=== PATIENT | male | born 2000 | race Caucasian/White ===

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

== ENCOUNTER 2022-02-02 08:01 | Emergency (ER) | payer OTHER, SELFPAY ==
--- NOTE | ~2022-02-02 | CT_ITS ---
EXAMINATION: CT ABDOMEN AND PELVIS WITH CONTRAST CLINICAL INFORMATION: Right lower quadrant pain COMPARISON: None TECHNIQUE: Multidetector volumetric images were obtained from the superior aspect of the liver through the pubic symphysis following administration 85 mL of Omnipaque 350 intravenous contrast. Sagittal and coronal reformatted images were obtained on the technologist's workstation. Oral contrast: Yes This CT examination was performed using dose optimization techniques as appropriate, variously including the following: *Automated exposure control *Adjustment of mA and/or kV according to patient size (this includes techniques or standardized protocols for targeted exams where dose is matched to indication/reason for exam; i.e. extremities or head) *Use of iterative reconstruction technique DLP: 470 mGy-cm FINDINGS: LUNG BASES: The visualized lung bases are unremarkable. LIVER, GALLBLADDER, AND BILIARY TREE: The liver is normal in size, shape, and attenuation. No focal hepatic lesion or biliary ductal dilatation is present. The gallbladder is unremarkable with no evidence of radiopaque gallstones, gallbladder wall thickening, or obvious pericholecystic inflammatory changes. PANCREAS: Unremarkable. SPLEEN: Unremarkable. ADRENAL GLANDS: Unremarkable. KIDNEYS AND URETERS: The kidneys are normal in size, shape, and attenuation. No hydronephrosis, hydroureter, or calculi seen. No perinephric stranding. BLADDER: Unremarkable. GASTROINTESTINAL TRACT: The small and large bowel are unremarkable. The appendix is unremarkable. ABDOMINAL WALL: No significant hernia is appreciated. LYMPH NODES: There is shotty small bowel mesentery lymphadenopathy. Larger lymph nodes are upper normal in size. No ascites. VASCULAR: Unremarkable. PELVIC VISCERA: Unremarkable. OSSEOUS STRUCTURES: Unremarkable. CT/CT abdomen pelvis w con IMPRESSION: Normal appendix. Shotty small bowel mesentery lymphadenopathy. Larger lymph nodes are upper normal in size. Fleischner guidelines were followed.
[2022-02-02 08:14] VITALS: BP 149/76; PULSE 79; RESP 18; TEMP 37.7; O2SAT 100; BMI 21.5
--- NOTE | 2022-02-02 08:41 | ED.GENADULT ---
HPI - General Adult General Chief complaint: Nausea/Vomiting/Diarrhea Stated complaint: abd pain vomiting Time Seen by Provider: 02/02/22 08:25 Source: patient Limitations: no limitations History of Present Illness HPI narrative: This is a 21-year-old male who 3 days ago had developed vomiting, which she had for 24 hours. The patient had eaten [employer] the night before the vomiting began. He denies any diarrhea. He did have dry heaves yesterday morning but felt somewhat better yesterday. This morning he noted pain in his right lower abdomen which is fairly intense, worse with walking or movement. Denies any fever. He denies any constipation. Denies any urinary symptoms. Related Data Home Medications Medication Instructions Recorded Confirmed No Known Home Meds 09/08/21 09/08/21 Allergies Allergy/AdvReac Type Severity Reaction Status Date / Time No Known Allergies Allergy Verified 02/02/22 08:21 [No Known Allergies*] Review of Systems Review of Systems: Yes all other systems are reviewed and are negative Constitutional: Constitutional: Reports as per HPI and Denies fever(s) Eyes: Eyes: Reports as per HPI and Reports no additional eye complaints ENT: Reports system reviewed and no additional complaints, except as documented, Reports as per HPI, Denies nasal congestion, Denies nasal discharge and Denies sore throat Cardiovascular: Cardiovascular: Reports as per HPI, Denies chest pain and Denies dyspnea Respiratory: Respiratory: Reports as per HPI, Denies cough and Denies dyspnea Gastrointestinal: Gastrointestinal: Reports as per HPI, Reports abdominal pain, Denies diarrhea, Reports nausea and Reports vomiting Genitourinary: Genitourinary: Reports as per HPI, Denies hematuria, Denies dysuria and Denies urinary frequency Musculoskeletal: Musculoskeletal: Reports no additional musculoskeletal complaints and Denies numbness Integumentary/Breasts: Skin/Breast: Reports as per HPI and Denies rash Neurologic: Reports as per HPI, Denies focal weakness and Denies numbness Psychiatric: Psychiatric: Reports no additional psychiatric complaints and Reports as per HPI Endocrine: Endocrine: Reports no additional endocrine complaints and Reports as per HPI Hematologic/Lymphatic: Hematologic/Lymphatic: Reports no additional hematologic/lymphatic complaints, Reports as per HPI and Reports other (No peripheral edema) [facility] Past Medical History Medical History (Updated 02/02/22 @ 10:40 by Wilfred Celaya MD) Anxiety Social History Social History Smoked in Last 30 Days: No Use of substances other than those prescribed or required for medical reasons: Yes Substance Use Type: Marijuana Advance Directives: No Advance Directives Information Provided: No Physical Exam ED Vital Signs: Vital Signs - 24 hr 02/02/22 08:14 02/02/22 09:28 Temperature 99.8 F 97.9 F Pulse Rate 79 68 Respiratory Rate 18 16 Blood Pressure 149/76 H 126/70 Pulse Oximetry 100 100 BMI result Body Mass Index 21.5 Const General: no acute distress Orientation/consciousness: patient oriented x3 HENMT Head: Yes normal to inspection General nose exam: Normal external nose present Mouth: moist mucous membranes Throat: Yes posterior oropharynx normal, Yes tonsils normal and Yes uvula midline Eyes Eyelids: Yes eyelids normal Conjunctivae: conjunctivae normal Pupils: Equal, round and reactive pupils present Neck Neck: Yes supple Resp Effort & Inspection: normal respiratory effort Auscultation: clear to auscultation bilaterally Cardio Rate: regular rate Rhythm: regular rhythm Heart sounds: S1 normal heart sound present, S2 normal heart sound present, no gallops, no murmurs and no rubs GI Inspection: Yes normal to inspection and No distended Palpation (GI): Soft to palpation, Tenderness to palpation present (GI) in the RLQ and at McBurney's point; Negative for obturator sign negative and Other GI palpation findings present (Tender to percussion at McBurney's point) Auscultation: normal bowel sounds Skin General skin exam: other (Warm and dry) Neuro General: patient oriented x3 and CN's II-XI intact bilaterally Cranial nerves: Yes Equal, round and reactive pupils present Extrem General: Yes no pedal edema Psych Affect: normal affect Attitude: cooperative Course Course Course Narrative: Patient with right lower quadrant pain, having had vomiting few days ago for 24 hours. Patient was tender around McBurney's point. White blood cell count normal. Afebrile. CT shows normal appendix, some evidence of increased adenopathy in the abdomen, patient may have mesenteric adenitis. Urinalysis negative. Patient was treated with normal saline 1 L IV, Zofran 4 mg IV, Toradol 15 mg IV Medical Decision Making Lab Data Lab results reviewed: Yes I reviewed the patient's lab results. Result diagrams: 02/02/22 08:39 02/02/22 08:39 Labs: Lab Results 02/02/22 02/02/22 02/02/22 Range/Units 08:39 08:39 09:30 WBC 6.1 (4.8-10.8) X10*3/uL RBC 5.04 (4.60-5.80) X10*6/uL Hgb 15.3 (14.0-18.0) g/dl Hct 44.2 (42.0-52.0) % MCV 87.7 (80.0-98.0) fL MCH 30.4 (27.0-33.0) pg MCHC 34.6 (31.0-36.0) g/dl RDW 12.6 (11.0-16.0) % Plt Count 182 (160-400) X10*3/uL MPV 10.1 (9.4-12.4) fL Immature Gran % (Auto) 0.2 (0.0-0.4) % Neut % (Auto) 67.3 (45-73) % Lymph % (Auto) 19.4 L (20-40) % [place] % (Auto) 11.5 H (2-11) % Eos % (Auto) 1.3 (0-4) % Baso % (Auto) 0.3 (0-2) % Lymph # (Auto) 1.2 (1.2-4.9) X10*3/uL [place] # (Auto) 0.7 (0.1-1.2) X10*3/uL Eos # (Auto) 0.1 (0.0-0.4) X10*3/uL Baso # (Auto) 0.0 (0.0-0.2) X10*3/uL Abs Immat Gran (auto) 0.01 (0.00-0.03) X10*3/uL Absolute Neuts (auto) 4.1 (2.0-8.3) x10*3/uL Absolute Nucleated RBC 0.000 (0.0-0.012) X10*3/uL Nucleated RBC % (auto) 0.0 (0.0-0.2) /100WBC Sodium 140 (135-145) mmol/L Potassium 4.1 (3.3-5.1) mmol/L Chloride 106 (96-108) mmol/L Carbon Dioxide 27 (22-29) mmol/L Anion Gap 11 L (12-20) BUN 13 (9-16) mg/dL Creatinine 0.89 (0.5-1.4) mg/dL Estim Creat Clear Calc 128.4 Estimated GFR > 60 Random Glucose 81 (60-115) mg/dL Calcium 9.6 (8.4-10.2) mg/dL Total Bilirubin 1.1 H (0.0-1.0) mg/dL AST 17 (5-37) U/L ALT 13 (0-40) U/L Alkaline Phosphatase 48 (39-117) U/L Total Protein 7.1 (6.5-8.0) g/dL Albumin 4.4 (3.5-5.0) g/dL Urine Color STRAW Urine Appearance CLEAR Urine pH 7.5 (5.0-8.0) Ur Specific [place] 1.010 (1.005-1.025) Urine Protein NEG (NEG-TRACE) MG/DL Urine Glucose (UA) NEG (NEG) MG/DL Urine Ketones NEG (NEG) MG/DL Urine Blood NEG (NEG) Urine Nitrite NEG (NEG) Ur Leukocyte Esterase NEG (NEG) Imaging Data CT scan - abdomen: Radiologist's impression: IMPRESSION: Normal appendix. Shotty small bowel mesentery lymphadenopathy. Larger lymph nodes are upper normal in size. Discharge Plan Discharge Clinical Impression: Acute mesenteric adenitis Patient Disposition: Home, Self-Care Instructions: Mesenteric Adenitis (ED) Additional Instructions: Drink plenty of fluids. Return for new or worsened symptoms such as progressive abdominal pain, fever. Use acetaminophen or ibuprofen for pain as needed. You likely had a viral syndrome causing the vomiting, and have enlarged lymph nodes related to this, that are causing pain Prescriptions: No Action No Known Home Meds 0RF Interventions: ED Discharge Assessment Last Done: 02/02/22 10:57 Discharge Date/Time: 02/02/22 10:58
[2022-02-02 08:44] LABS: MANUAL DIFF FLAG NO
[2022-02-02 08:47] LABS: Basophils Percent Auto 0.3 % (0-2); Eosinophils Absolute Auto 0.1 X10*3/uL (0.0-0.4); Eosinophils Percent Auto 1.3 % (0-4); Hematocrit 44.2 % (42.0-52.0); Hemoglobin 15.3 g/dl (14.0-18.0); Imm Gran Abs Auto 0.01 X10*3/uL (0.00-0.03); Imm Gran Pct Auto 0.2 % (0.0-0.4); Lymphocytes Absolute Auto 1.2 X10*3/uL (1.2-4.9); Lymphocytes Percent Auto 19.4 % (20-40); Mean Corpuscular HGB Conc 34.6 g/dl (31.0-36.0); Mean Corpuscular Hemoglobin 30.4 pg (27.0-33.0); Mean Corpuscular Volume 87.7 fL (80.0-98.0); Mean Platelet Volume 10.1 fL (9.4-12.4); Monocytes Absolute Auto 0.7 X10*3/uL (0.1-1.2); Monocytes Percent Auto 11.5 % (2-11); Neutrophils Absolute Auto 4.1 x10*3/uL (2.0-8.3); Neutrophils Percent Auto 67.3 % (45-73); Platelet Count 182 X10*3/uL (160-400); Red Blood Count 5.04 X10*6/uL (4.60-5.80); Red Cell Distribution Width 12.6 % (11.0-16.0); White Blood Count 6.1 X10*3/uL (4.8-10.8)
[2022-02-02] MEDS: 0.9 % Sodium Chloride 1,000 ML 999 ML IV (09:00)
[2022-02-02 09:09] LABS: Alanine Aminotransferase 13 U/L (0-40); Albumin Level 4.4 g/dL (3.5-5.0); Alkaline Phosphatase 48 U/L (39-117); Anion Gap 11 (12-20); Aspartate Amino Transferase 17 U/L (5-37); Bilirubin Total 1.1 mg/dL (0.0-1.0); Blood Urea Nitrogen 13 mg/dL (9-16); Calcium 9.6 mg/dL (8.4-10.2); Carbon Dioxide 27 mmol/L (22-29); Chloride 106 mmol/L (96-108); Creatinine Clr Calc Pharmacy 128.4; Estimated Glomerular Filt Rate > 60; Glucose Random 81 mg/dL (60-115); Potassium 4.1 mmol/L (3.3-5.1); Sodium 140 mmol/L (135-145); Total Protein 7.1 g/dL (6.5-8.0)
[2022-02-02] MEDS: ondansetron HCL 4 MG/2 ML VIAL IVPUSH (09:15)
[2022-02-02 09:28] VITALS: BP 126/70; PULSE 68; RESP 16; TEMP 36.6; O2SAT 100
[2022-02-02 09:41] LABS: Appearance Urine CLEAR; Color Urine STRAW; Glucose Urine UA NEG (NEG); Leukocyte Esterase Urine NEG (NEG); Nitrite Urine NEG (NEG); PH 7.5 (5.0-8.0); Urine Blood NEG (NEG); Urine Ketones NEG (NEG); Urine Protein NEG (NEG-TRACE)
[2022-02-02] MEDS: iohexoL 350 MG/ML 100 ML INFUS..BTL IV (09:44)
[2022-02-02] MEDS: Ketorolac Tromethamine 15 MG/ML VIAL IVPUSH (10:54)
== END 2022-02-02 10:58 | disposition home or self-care (01) ==
PROVIDERS: Emergency Provider Emergency Medicine; PCP Specialist
DX: I88.0 Nonspecific mesenteric lymphadenitis (principal); R10.31 Right lower quadrant pain; Z79.899 Other long term (current) drug therapy
CPT/HCPCS: 36415; 74177; 80053; 81003; 85025; 96361; 96374; 96375; 99284; 99285; J1885; J2405; Q9967

== ENCOUNTER 2022-05-10 08:43 | Emergency (ER) | payer OTHER, SELFPAY ==
--- NOTE | ~2022-05-10 | US_ITS ---
EXAMINATION: US SCROTUM US SCROTUM DOPPLER CLINICAL INFORMATION: Right-sided pain. Evaluate for testicular torsion.. COMPARISON: CT abdomen and pelvis from 02/02/2022. TECHNIQUE: A sonogram of the scrotum was performed assessing sroto-scale appearance and color Doppler flow. Spectral Doppler analysis of the arterial and venous flow were performed in the testes bilaterally. FINDINGS: Scrotal ultrasound The right and left testicle and each epididymis have symmetric, normal echotexture. No evidence of testicular microlithiasis or mass. The right testicle is 4.3 x 1.6 x 2.5 cm and left testicle 3.8 x 1.6 x 2.6 cm. On color Doppler imaging, there is no evidence of hyperemia of either epididymis. No hydrocele or varicocele. No extratesticular masses. Scrotal Doppler The pulsed color Doppler images with spectral waveforms show presence of normal symmetric arterial and venous flow within each testicle. US/US scrotum doppler IMPRESSION: Normal ultrasound examination of the scrotum. No evidence of testicular mass or torsion.
--- NOTE | ~2022-05-10 | US_ITS ---
EXAMINATION: US SCROTUM US SCROTUM DOPPLER CLINICAL INFORMATION: Right-sided pain. Evaluate for testicular torsion.. COMPARISON: CT abdomen and pelvis from 02/02/2022. TECHNIQUE: A sonogram of the scrotum was performed assessing sorto-scale appearance and color Doppler flow. Spectral Doppler analysis of the arterial and venous flow were performed in the testes bilaterally. FINDINGS: Scrotal ultrasound The right and left testicle and each epididymis have symmetric, normal echotexture. No evidence of testicular microlithiasis or mass. The right testicle is 4.3 x 1.6 x 2.5 cm and left testicle 3.8 x 1.6 x 2.6 cm. On color Doppler imaging, there is no evidence of hyperemia of either epididymis. No hydrocele or varicocele. No extratesticular masses. Scrotal Doppler The pulsed color Doppler images with spectral waveforms show presence of normal symmetric arterial and venous flow within each testicle. US/US scrotum IMPRESSION: Normal ultrasound examination of the scrotum. No evidence of testicular mass or torsion.
[2022-05-10 08:45] VITALS: BP 130/72; PULSE 75; RESP 18; TEMP 36.9; O2SAT 99; BMI 24.3
--- NOTE | 2022-05-10 08:55 | ED.MALEGU ---
HPI - Male Genitourinary General Chief complaint: Urogenital-Male Stated complaint: R testical pain Time Seen by Provider: 05/10/22 08:49 Source: patient Mode of arrival: ambulatory Limitations: no limitations History of Present Illness Complaint: testicle pain and testicle swelling Onset (ago): hour(s) (8am today - did hurt a little yesterday but went away) Duration: progressively worsening Location: right testicle Severity: severe Quality: stabbing Relieving factors: none Exacerbating factors: palpation and movement Context: other (denies any recent intercourse/trauma/last intercourse over 1+ month ago and used a condom) Associated symptoms: Reports denies other symptoms Related Data Previous Rx's Medication Instructions Recorded doxycycline hyclate 100 mg capsule 100 mg PO BID 7 days #14 caps 05/10/22 Allergies Allergy/AdvReac Type Severity Reaction Status Date / Time No Known Allergies Allergy Verified 02/02/22 08:21 [No Known Allergies*] Review of Systems Review of Systems: Constitutional : No Fever, No Chills, No Fatigue, No Malaise ENT/Mouth : No sore throat, No Rhinorrhea Eyes: No Eye Pain, No Swelling, No Redness Cardiovascular : No Chest Pain, No SOB Respiratory : No Cough, No Sputum, No Wheezing Gastrointestinal : pos Nausea, No Vomiting, No Diarrhea, No abdominal Pain Genitourinary : No Dysuria, No Urinary Frequency, No Hematuria, pos testicular pain Musculoskeletal : No joint pain, No Myalgias, No Joint Swelling Skin : No Skin Lesions, No rash Neuro : No Weakness, No Numbness, No Dizziness, No Headache Psych : No Anxiety/Panic, No Depression Heme/Lymph: No Bruising, No Bleeding,No Lymphadenopathy Endocrine : No Polyuria, No Polydipsia All other systems reviewed and are negative [facility] Past Medical History Attestation statement: The following information was validated with the patient. Medical History Anxiety Social History Social History (Updated 05/10/22 @ 08:57 by Edith Swann DO) Patient Tobacco Use Status: Never used Tobacco Use of substances other than those prescribed or required for medical reasons: Yes Substance Use Type: Marijuana Advance Directives: No Advance Directives Information Provided: No Physical Exam Vital Signs: Vital Signs: Last Vital Signs Temp 98.4 F 05/10/22 08:45 Pulse 76 05/10/22 09:04 Resp 20 05/10/22 09:04 BP 144/83 H 05/10/22 09:04 Pulse Ox 100 05/10/22 09:04 O2 Del Method 05/10/22 09:04 BMI result Body Mass Index 24.3 Appearance: Alert. Oriented X3. in pain mild acute distress. Eyes: Pupils equal, round and reactive to light. ENT: Pharynx normal. Neck: Normal inspection. Neck supple. CVS: Normal heart rate and rhythm. Pulses normal. Respiratory: No respiratory distress. Breath sounds normal. Abdomen: Soft and nontender. : R testicle high riding, decreased cremasteric reflex, scrotum no erythema/rash/swelling, cord is not tender to palpation, marked ttp along testicle itself Skin: Skin warm and dry. Normal skin color. Normal skin turgor. Extremities: No lower extremity edema. Neuro: Oriented X 3. No motor deficit. No sensory deficit. Course Course Course Narrative: message sent to Urology 0855 US normal, no hernia felt, pain improved just mild ttp along base of testicle no sign of torsion MDM - Male Genitourinary MDM Narrative Medical decision making narrative: 22 yo male abrupt onset atraumatic R testicular pain - at this time STAT US for torsion ordered, IVF, IV Morphine/toradol for pain, Urology notified on arrival of suspicion. Dispo per US results. Lab Data Result diagrams: 05/10/22 08:57 05/10/22 08:57 Labs: Lab Results 05/10/22 05/10/22 05/10/22 Range/Units 08:57 08:57 08:57 WBC 8.6 (4.8-10.8) X10*3/uL RBC 5.40 (4.60-5.80) X10*6/uL Hgb 16.2 (14.0-18.0) g/dl Hct 47.8 (42.0-52.0) % MCV 88.5 (80.0-98.0) fL MCH 30.0 (27.0-33.0) pg MCHC 33.9 (31.0-36.0) g/dl RDW 12.6 (11.0-16.0) % Plt Count 205 (160-400) X10*3/uL MPV 10.3 (9.4-12.4) fL Immature Gran % (Auto) 0.2 (0.0-0.4) % Neut % (Auto) 63.0 (45-73) % Lymph % (Auto) 27.9 (20-40) % [place] % (Auto) 6.9 (2-11) % Eos % (Auto) 1.5 (0-4) % Baso % (Auto) 0.5 (0-2) % Lymph # (Auto) 2.4 (1.2-4.9) X10*3/uL [place] # (Auto) 0.6 (0.1-1.2) X10*3/uL Eos # (Auto) 0.1 (0.0-0.4) X10*3/uL Baso # (Auto) 0.0 (0.0-0.2) X10*3/uL Abs Immat Gran (auto) 0.02 (0.00-0.03) X10*3/uL Absolute Neuts (auto) 5.4 (2.0-8.3) x10*3/uL Absolute Nucleated RBC 0.000 (0.0-0.012) X10*3/uL Nucleated RBC % (auto) 0.0 (0.0-0.2) /100WBC PT 11.9 (10.0-13.1) SEC INR 1.0 (0.9-1.1) Sodium 142 (135-145) mmol/L Potassium 4.3 (3.3-5.1) mmol/L Chloride 103 (96-108) mmol/L Carbon Dioxide 30 H (22-29) mmol/L Anion Gap 13 (12-20) BUN 13 (9-16) mg/dL Creatinine 1.00 (0.5-1.4) mg/dL Estim Creat Clear Calc 121.6 Estimated GFR > 60 Random Glucose 98 (60-115) mg/dL Calcium 9.7 (8.4-10.2) mg/dL Total Bilirubin 1.0 (0.0-1.0) mg/dL Direct Bilirubin 0.4 (0.0-0.5) mg/dL AST 13 (5-37) U/L ALT 9 (0-40) U/L Alkaline Phosphatase 46 (39-117) U/L Total Protein 7.4 (6.5-8.0) g/dL Albumin 4.7 (3.5-5.0) g/dL Urine Color Urine Appearance Urine pH (5.0-8.0) Ur Specific [place] (1.005-1.025) Urine Protein (NEG-TRACE) MG/DL Urine Glucose (UA) (NEG) MG/DL Urine Ketones (NEG) MG/DL Urine Blood (NEG) Urine Nitrite (NEG) Ur Leukocyte Esterase (NEG) Chlam trachomat DNA PCR (Not Detect.) COVID-19 (ANAI) (Negative) COVID-19 Clin Com N.gonorrhoeae DNA (PCR) (Not Detect.) 05/10/22 05/10/22 05/10/22 Range/Units 08:57 10:01 10:01 WBC (4.8-10.8) X10*3/uL RBC (4.60-5.80) X10*6/uL Hgb (14.0-18.0) g/dl Hct (42.0-52.0) % MCV (80.0-98.0) fL MCH (27.0-33.0) pg MCHC (31.0-36.0) g/dl RDW (11.0-16.0) % Plt Count (160-400) X10*3/uL MPV (9.4-12.4) fL Immature Gran % (Auto) (0.0-0.4) % Neut % (Auto) (45-73) % Lymph % (Auto) (20-40) % [place] % (Auto) (2-11) % Eos % (Auto) (0-4) % Baso % (Auto) (0-2) % Lymph # (Auto) (1.2-4.9) X10*3/uL [place] # (Auto) (0.1-1.2) X10*3/uL Eos # (Auto) (0.0-0.4) X10*3/uL Baso # (Auto) (0.0-0.2) X10*3/uL Abs Immat Gran (auto) (0.00-0.03) X10*3/uL Absolute Neuts (auto) (2.0-8.3) x10*3/uL Absolute Nucleated RBC (0.0-0.012) X10*3/uL Nucleated RBC % (auto) (0.0-0.2) /100WBC PT (10.0-13.1) SEC INR (0.9-1.1) Sodium (135-145) mmol/L Potassium (3.3-5.1) mmol/L Chloride (96-108) mmol/L Carbon Dioxide (22-29) mmol/L Anion Gap (12-20) BUN (9-16) mg/dL Creatinine (0.5-1.4) mg/dL Estim Creat Clear Calc Estimated GFR Random Glucose (60-115) mg/dL Calcium (8.4-10.2) mg/dL Total Bilirubin (0.0-1.0) mg/dL Direct Bilirubin (0.0-0.5) mg/dL AST (5-37) U/L ALT (0-40) U/L Alkaline Phosphatase (39-117) U/L Total Protein (6.5-8.0) g/dL Albumin (3.5-5.0) g/dL Urine Color STRAW Urine Appearance HAZY Urine pH 8.5 H (5.0-8.0) Ur Specific [place] 1.010 (1.005-1.025) Urine Protein NEG (NEG-TRACE) MG/DL Urine Glucose (UA) NEG (NEG) MG/DL Urine Ketones NEG (NEG) MG/DL Urine Blood NEG (NEG) Urine Nitrite NEG (NEG) Ur Leukocyte Esterase NEG (NEG) Chlam trachomat DNA PCR NOT DETECTED (Not Detect.) COVID-19 (ANAI) Negative (Negative) COVID-19 Clin Com See Note N.gonorrhoeae DNA (PCR) NOT DETECTED (Not Detect.) Discharge Plan Discharge Clinical Impression: Pain in right testicle Patient Disposition: Home, Self-Care Instructions: Scrotal Pain (ED) Additional Instructions: return to ED for any worsening symptoms or concerns if the pain returns to this severity please come back to the Emergency department, no intercourse for 1 week complete all antibiotics wear supportive tight fitting underwear Prescriptions: New doxycycline hyclate 100 mg capsule 100 mg PO BID 7 Days Qty: 14 0RF Stand Alone Forms: Work/School Release Interventions: ED Discharge Assessment Last Done: 05/10/22 11:51 Discharge Date/Time: 05/10/22 11:52
[2022-05-10] MEDS: Morphine Sulfate 4 MG/ML CARTRIDGE IVPUSH (08:58)
[2022-05-10] MEDS: ondansetron HCL 4 MG/2 ML VIAL IVPUSH (08:58)
[2022-05-10] MEDS: Ketorolac Tromethamine 15 MG/ML VIAL IVPUSH (08:59)
[2022-05-10] MEDS: Lactated Ringers 1,000 ML 999 ML IV (09:00)
[2022-05-10 09:04] VITALS: BP 144/83; PULSE 76; RESP 20; O2SAT 100
[2022-05-10 09:06] LABS: MANUAL DIFF FLAG NO
[2022-05-10 09:09] LABS: Basophils Percent Auto 0.5 % (0-2); Eosinophils Absolute Auto 0.1 X10*3/uL (0.0-0.4); Eosinophils Percent Auto 1.5 % (0-4); Hematocrit 47.8 % (42.0-52.0); Hemoglobin 16.2 g/dl (14.0-18.0); Imm Gran Abs Auto 0.02 X10*3/uL (0.00-0.03); Imm Gran Pct Auto 0.2 % (0.0-0.4); Lymphocytes Absolute Auto 2.4 X10*3/uL (1.2-4.9); Lymphocytes Percent Auto 27.9 % (20-40); Mean Corpuscular HGB Conc 33.9 g/dl (31.0-36.0); Mean Corpuscular Volume 88.5 fL (80.0-98.0); Mean Platelet Volume 10.3 fL (9.4-12.4); Monocytes Absolute Auto 0.6 X10*3/uL (0.1-1.2); Monocytes Percent Auto 6.9 % (2-11); Neutrophils Absolute Auto 5.4 x10*3/uL (2.0-8.3); Platelet Count 205 X10*3/uL (160-400); Red Cell Distribution Width 12.6 % (11.0-16.0); White Blood Count 8.6 X10*3/uL (4.8-10.8)
[2022-05-10 09:20] LABS: COVID-19 Test Negative (Negative)
[2022-05-10 09:29] LABS: Alanine Aminotransferase 9 U/L (0-40); Albumin Level 4.7 g/dL (3.5-5.0); Alkaline Phosphatase 46 U/L (39-117); Anion Gap 13 (12-20); Aspartate Amino Transferase 13 U/L (5-37); Bilirubin Direct 0.4 mg/dL (0.0-0.5); Blood Urea Nitrogen 13 mg/dL (9-16); Calcium 9.7 mg/dL (8.4-10.2); Carbon Dioxide 30 mmol/L (22-29); Chloride 103 mmol/L (96-108); Creatinine Clr Calc Pharmacy 121.6; Estimated Glomerular Filt Rate > 60; Glucose Random 98 mg/dL (60-115); Potassium 4.3 mmol/L (3.3-5.1); Sodium 142 mmol/L (135-145); Total Protein 7.4 g/dL (6.5-8.0)
[2022-05-10 09:31] LABS: Prothrombin Time 11.9 SEC (10.0-13.1)
[2022-05-10 10:15] LABS: Appearance Urine HAZY; Color Urine STRAW; Glucose Urine UA NEG (NEG); Leukocyte Esterase Urine NEG (NEG); Nitrite Urine NEG (NEG); PH 8.5 (5.0-8.0); Urine Blood NEG (NEG); Urine Ketones NEG (NEG); Urine Protein NEG (NEG-TRACE)
[2022-05-10] MEDS: cefTRIAXone sodium 1 GM in 0.9 % Sodium Chloride 50 ML IV (11:14)
[2022-05-10 12:40] LABS: CT PCR NOT DETECTED (Not Detect.); NG PCR NOT DETECTED (Not Detect.)
== END 2022-05-10 11:52 | disposition home or self-care (01) ==
PROVIDERS: Emergency Provider Emergency Medicine; PCP Specialist
DX: N50.811 Right testicular pain (principal); Z20.822 Contact with and (suspected) exposure to COVID-19
CPT/HCPCS: 76870; 80048; 80076; 81003; 85025; 85610; 87491; 87591; 87635; 93975; 96361; 96365; 96374; 96375; 99284; J0696; J1885; J2270; J2405

== ENCOUNTER 2022-07-20 18:44 | Emergency (ER) | payer OTHER, SELFPAY | END 2022-07-20 19:20 | disposition left against medical advice (07) | PROVIDERS: Emergency Provider Emergency Medicine; PCP Specialist | DX: N50.819 Testicular pain, unspecified (principal) ==

== ENCOUNTER 2024-02-05 14:05 | Outpatient (AMB) | payer OTHER, SELFPAY ==
--- NOTE | 2024-02-05 14:41 | MHC.PC.OV ---
Intake Visit Reasons: establish care Allergies No Known Allergies [No Known Allergies*] Allergy (Verified 02/02/22 08:21) Medication List - Last Reconciled 02/05/24 by Sara Dallas MD albuterol sulfate 90 mcg/actuation 2 puffs inhalation Q6H PRN Tobacco use date assessed: 02/05/24 Dental Screening Dental Screen Date: 02/05/24 HPI HPI Comments History of Present Illness Details 23 year old male with a past medical history of IBS presenting to [facility] and for ER follow up. He is transferring from pediatrics Presented to [facility] ER on January 14 with left sided abdominal pain and a reported episode of unresponsiveness. Hit his left flank on a doorknob ~5 pm causing significant pain. Between 5 and 10pm patient smoked some marijuana and ingested a few edibles which was not outside his norm. Between 945 and 10pm patient started to feel sick , nauseous. He elicited pain when pressing on the left flank He walked upstairs and says things became hazy. Sat down on a chair where he reports losing consciousness for ~10 seconds. Work up, stepmom and stepmoms friends were there and brought him to hospital. No prior similar episode. in ER EKG normal. No significant electrolyte abnormalities. . CT abd largely unremarkable Patient denies any interval episodes. Reports that he was talking with someone when he lost consciousness. They noticed nystagmus of the eyes. Deny witness of any muscle twitching, shaking, tongue biting, incontinence. Patient does endorse history of concussions none within last 6 months. Reports a few headaches a month for years. Reports decreasing visual acuity over years. Denies significant post ictal phase [facility] Medical History (Updated 02/05/24 @ 15:38 by Sara Dallas MD) Depression Eczema Imbalance Memory loss Seizures IBS (irritable bowel syndrome) Asthma Anxiety Family History (Updated 02/05/24 @ 14:36 by Laina Kim CMA) Mother Alcoholism Paternal Grandmother Cardiovascular disease Maternal Grandmother Alcoholism Other Substance use Social History (Updated 02/05/24 @ 14:34 by Laina Kim CMA) Housing: House Patient Tobacco Use Status: Former Tobacco user Cigarette Packs Per Day: 0.5 Years Smoked: 1 e-Cigarette/Vaping Use: Former Use Second Hand Smoke Exposure: Yes (past and present) Substance Use Type: Marijuana service: Yes Current occupational status: employed 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 1. Little interest or pleasure in doing things: not at all 2. Feeling down, depressed, or hopeless: not at all 3. Trouble falling or staying asleep, or sleeping too much: not at all 4. Feeling tired or having little energy: not at all 5. Poor appetite or overeating: not at all 6. Feeling bad about yourself - or that you are a failure or have let yourself or your family down: not at all 7. Trouble concentrating on things, such as reading the newspaper or watching television: not at all 8. Moving or speaking so slowly that other people could have noticed. Or the opposite - being so fidgety or restless that you have been moving around a lot more than usual: not at all 9. Thoughts that you would be better off or of hurting yourself in some way: not at all Total score: 0 Depression Screening Interpretation: Negative Depression Screening Done: Yes Source: Developed by Drs. Rigo Hernández, Anali Gibbs, Bryon Garcia and colleagues, with an educational queta from [employer]. Review of Systems Const Details: see HPI Physical exam (Primary Care) Tobacco/Smoking Status: Tobacco use Status Tobacco use date assessed 02/05/24 02/05/24 14:43 Patient Tobacco Use Status Former Tobacco user 02/05/24 14:43 e-Cigarette/Vaping Use Former Use 02/05/24 14:43 Depression Screening Interpretation: Negative Const Other: PHYSICAL EXAM: GENERAL: Alert and oriented x 3. NAD EYES: EOMI. Anicteric. HENT: Moist mucous membranes. No scleral icterus. No cervical lymphadenopathy. LUNGS: Clear to auscultation bilaterally. CARDIOVASCULAR: Regular rate and rhythm. ABDOMEN: Soft, non-tender +bs EXTREMITIES: No edema. Non-tender. SKIN: No rashes or lesions. Warm. NEUROLOGIC: No focal neurological deficits. CN II-XII grossly intact PSYCHIATRIC: Cooperative. Appropriate mood and affect Assessment and Plan Assessment & Plan (1) Loss of consciousness: Comment: Discussed possible drug induced LOC but with nystagmus and headaches would like to r/o seizures. Orders sent Code(s): R40.20 - Unspecified coma (2) Headache: Code(s): R51.9 - Headache, unspecified Qualifiers: Headache chronicity pattern: chronic headache Headache type: unspecified Intractability: intractable Qualified Code(s): R51.9 - Headache, unspecified; G89.29 - Other chronic pain (3) Nystagmus: Code(s): H55.00 - Unspecified nystagmus Orders: Orders MR brain wo/w con w neuroquant Today H55.00 - Unspecified nystagmus, R40.20 - Unspecified coma, R51.9 - Headache, unspecified EEG ambulatory Today H55.00 - Unspecified nystagmus, R40.20 - Unspecified coma, R51.9 - Headache, unspecified Referrals Dermatology Referral D18.01 - Hemangioma of skin and subcutaneous tissue Neurology Referral H55.00 - Unspecified nystagmus, R40.20 - Unspecified coma, R51.9 - Headache, unspecified Coding Level of Care Code New Pt Level 5 (26253) Complex EM visit Add On G2211 Diagnoses Loss of consciousness R40.20 Chronic intractable headache, unspecified headache type R51.9; G89.29 Headache chronicity pattern: chronic headache Headache type: unspecified Intractability: intractable Nystagmus H55.00 Time Spent (min) 62
== END 2024-02-05 15:17 | disposition home or self-care (01) ==
LOC: HO.HMGFM 14:05
PROVIDERS: PCP Internal Medicine; Visit Provider Internal Medicine
DX: R40.20 Unspecified coma (principal); R51.9 Headache, unspecified; G89.29 Other chronic pain; H55.00 Unspecified nystagmus
CPT/HCPCS: 99205; G2211

== ENCOUNTER 2024-03-05 10:29 | Outpatient (REF) | payer OTHER, SELFPAY ==
--- NOTE | ~2024-03-05 | MR_ITS ---
EXAMINATION: MR BRAIN WITHOUT AND WITH CONTRAST CLINICAL INFORMATION: Unspecified, and fold lesions; new seizure 1 month ago, speech difficulty, memory problems, headaches. History of several concussions October 2023. COMPARISON: None available. TECHNIQUE: Multiplanar, multisequence MRI of the brain was obtained before and after the intravenous administration of 7 mL Gadavist. Seizure protocol was utilized. FINDINGS: There is no diffusion restriction. There is no intracranial hemorrhage, acute infarction, mass effect, or edema. No evidence of cortical dysplasia or heterotopic sorto matter identified. Ventricles, sulci, and cisterns are normal in size and configuration for patient age. No shift of midline. No abnormal hemosiderin deposition is identified. No atrophy of the corpus callosum. The hippocampal formations are symmetric in volume and signal bilaterally without evidence of atrophic changes. There are no white matter abnormalities identified. After contrast, no abnormal intra or extra-axial contrast enhancement is noted. Midline structures appear normally formed. The pituitary gland appears normal. Cerebellar tonsils are appropriately located. Major flow voids are preserved within the skull base. The globes and orbital contents demonstrate no abnormalities. The paranasal sinuses are aerated normally. No significant nasal septal deviation. The mastoids and tympanic cavities are normally aerated. Extracranial soft tissues demonstrate mildly prominent adenoidal soft tissues in the posterior nasopharynx. No suspicious bone marrow changes are evident. Atlantoaxial joint is normal. MR/MR head/brain wo/w con IMPRESSION: 1. No evidence of intracranial hemorrhage, acute infarction, mass effect, edema, or abnormal contrast enhancement. 2. No seizure foci identified. No white matter signal abnormalities identified, the hippocampi appear normal, and no cortical dysplasia or evidence of heterotopic sorto matter. 3. No abnormal patterns of atrophy.
--- NOTE | ~2024-03-05 | XR_ITS ---
Examination: XR pre mri screening Indication: Reason for Exam PRE MRI ORBITS R/O FOREIGN BODY Comparison: No pertinent prior studies are currently available for comparison. Technique: 3 views of the orbits obtained. Findings: No radiopaque foreign bodies seen overlying the orbits. Visualized sinuses are well aerated and unremarkable. No abnormal bony abnormality. XR/XR pre mri screening Impression: No radiopaque foreign body seen overlying the orbits.
[2024-03-05] MEDS: gadobutroL 7.5 ML VIAL IVPUSH (12:32)
== END 2024-03-05 10:30 | disposition home or self-care (01) ==
LOC: HO.MRI 10:29
PROVIDERS: PCP Internal Medicine; Visit Provider Internal Medicine
DX: R56.9 Unspecified convulsions (principal); H55.00 Unspecified nystagmus; R51.9 Headache, unspecified; G89.29 Other chronic pain; R40.20 Unspecified coma
CPT/HCPCS: 70553; A9585

== ENCOUNTER → 2024-03-05 10:29 | Outpatient (BNV) | payer OTHER, SELFPAY | PROVIDERS: PCP Internal Medicine; Visit Provider Radiology Diagnostic Radiology | DX: G40.89 Other seizures (principal) | CPT/HCPCS: 70553 ==

== ENCOUNTER → 2024-04-17 15:06 | Outpatient (AMB) | payer OTHER, SELFPAY ==
[2024-04-17 15:23] VITALS: BP 116/58; PULSE 71; RESP 12; O2SAT 98; BMI 23.4
--- NOTE | 2024-04-17 15:23 | MHC.PC.OV ---
Vital Signs 04/17/24 15:23 Height 5 ft 10 in Weight 163 lb BMI 23.4 BP 116/58 L Blood Pressure Location Lt brachial Position Sitting Respiration 12 Pulse 71 Pulse Source Pulse Oximeter Pulse Oximetry (%) 98 Oxygen Delivery Method Room Air Intake Visit Reasons: est/ multiple issues Intake Note: Patient is here for concern of bleeding and irritation while wiping his bum. Patient states this has been ongoing for 1-2 months. Supervisor [employer] Required: No Accompanied by: Self / Same As Patient Allergies No Known Allergies [No Known Allergies*] Allergy (Verified 04/17/24 15:27) Tobacco use date assessed: 02/05/24 Dental Screening Dental Screen Date: 02/05/24 HPI HPI Comments History of Present Illness Details 23 year old male with a past medical history of IBS, presenting for rectal discomfort Patient reports ongoing issues with intermittent rectal discomfort, episodic bright red blood spotting on tissue paper. He has IBS is prone to frequent loose stools. Sometimes he feels swelling in the rectal area AMS:Patient denies Presented to [facility] ER on January 14 with left sided abdominal pain and a reported episode of unresponsiveness. Hit his left flank on a doorknob ~5 pm causing significant pain. Between 5 and 10pm patient smoked some marijuana and ingested a few edibles which was not outside his norm. Between 945 and 10pm patient started to feel sick , nauseous. He elicited pain when pressing on the left flank He walked upstairs and says things became hazy. Sat down on a chair where he reports losing consciousness for ~10 seconds. Work up, stepmom and stepmoms friends were there and brought him to hospital. No prior similar episode. in ER EKG normal. No significant electrolyte abnormalities. . CT abd largely unremarkable Patient denies any interval episodes. Reports that he was talking with someone when he lost consciousness. They noticed nystagmus of the eyes. Deny witness of any muscle twitching, shaking, tongue biting, incontinence. Patient does endorse history of concussions none within last 6 months. Reports a few headaches a month for years. Reports decreasing visual acuity over years. Denies significant post ictal phase ROS see HPI PHYSICAL EXAM: GENERAL: Alert and oriented x 3. NAD EYES: EOMI. Anicteric. HENT: Moist mucous membranes. No scleral icterus. No cervical lymphadenopathy. LUNGS: Clear to auscultation bilaterally. CARDIOVASCULAR: Regular rate and rhythm. No murmur. No JVD. ABDOMEN: Soft, non-tender +bs RECTAL: Normal appearing anus, palpable tender internal hemorrhoids. No visible skin tears, no bleeding EXTREMITIES: No edema. Non-tender. SKIN: No rashes or lesions. Warm. NEUROLOGIC: No focal neurological deficits. CN II-XII grossly intact PSYCHIATRIC: Cooperative. 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 Rigo Hernández, Anali Gibbs, Bryon Garcia and colleagues, with an educational queta from [employer]. Physical exam (Primary Care) Vital Signs: Last Vital Signs Pulse 71 04/17/24 15:23 Resp 12 04/17/24 15:23 BP 116/58 L 04/17/24 15:23 Pulse Ox 98 04/17/24 15:23 Oxygen Delivery Method Room Air 04/17/24 15:23 BMI result Body Mass Index 23.4 Tobacco/Smoking Status: Tobacco use Status Tobacco use date assessed 02/05/24 04/17/24 15:28 Patient Tobacco Use Status Never used Tobacco 04/17/24 15:28 e-Cigarette/Vaping Use Former Use 04/17/24 15:28 Thrive Assessment: Date of Thrive Assessment Date Thrive assessed 02/05/24 04/17/24 15:28 Assessment and Plan Assessment & Plan (1) Internal hemorrhoid: Code(s): K64.8 - Other hemorrhoids Plan: Advised metamucil, IBS probiotic Advised preparation H ointment, witch maikol wipes, sitz baths Referral to colorectal for evaluation for recurrent hemorrhoids Orders: Referrals Colon & Rectal Referral K64.8 - Other hemorrhoids Coding Level of Care Code Est Pt Level 4 (09946) Diagnoses Internal hemorrhoid K64.8
== END ==
PROVIDERS: PCP Internal Medicine; Visit Provider Internal Medicine
DX: K64.8 Other hemorrhoids (principal)
CPT/HCPCS: 99214

== ENCOUNTER 2024-04-30 13:55 | Outpatient (AMB) | payer OTHER, SELFPAY ==
[2024-04-30 14:19] VITALS: BP 120/64; PULSE 65; BMI 22.8
--- NOTE | 2024-04-30 14:19 | A.OFFVIS_ITS ---
Vital Signs 04/30/24 14:19 Height 5 ft 10 in Weight 159 lb BMI 22.8 BP 120/64 Blood Pressure Location Rt brachial Position Sitting Pulse 65 Intake Visit Reasons: Hemorrhoids Intake Note: This patient presents for hemorrhoids assessment. Patient c/o; reports occasional rectal bleeding, reports history of constipation. Machine Striper Required: No Accompanied by: Self / Same As Patient Allergies No Known Allergies [No Known Allergies*] Allergy (Verified 04/30/24 14:29) Medication List - Last Reconciled 04/30/24 by Db Tomlinson MD albuterol sulfate 90 mcg/actuation 2 puffs inhalation Q6H PRN HPI HPI Hemorrhoids: Details: 23-year-old male referred for hemorrhoid. He says that he had told his primary care physician about 2 months ago that he felt that his hemorrhoids were ?swollen?. He states that he feels that there were swollen from the inside out He does state that he has gotten better since that time. He says that he has used some preparation H which she says has helped. He says he was referred to me by his primary care physician for an examination. He denies bleeding per rectum. He denies being constipated. [facility] Medical History (Updated 04/30/24 @ 14:50 by Db Tomlinson MD) Hemorrhoids Depression Eczema Imbalance Memory loss Seizures IBS (irritable bowel syndrome) Asthma Anxiety Surgical History No pertinent past surgical history Family History Mother Alcoholism Paternal Grandmother Cardiovascular disease Maternal Grandmother Alcoholism Other Substance use Social History Housing: House Patient Tobacco Use Status: Never used Tobacco Cigarette Packs Per Day: 0.5 Years Smoked: 1 e-Cigarette/Vaping Use: Former Use Second Hand Smoke Exposure: Yes (past and present) Substance Use Type: Marijuana service: Yes 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 Current occupational exposures/hazards: No Cognitive needs: No Hearing needs: Yes (tinnitus ) Vision needs: No Review of Systems Const Denies chills and Denies fever(s) Card Denies chest pain, Denies dyspnea and Denies dyspnea on exertion Resp Denies cough, Denies dyspnea and Denies dyspnea on exertion GI Denies hematochezia and Denies change in bowel habits Denies hematuria and Denies difficulty urinating Musc Denies back pain and Denies limited range of motion Neuro Denies focal weakness and Denies convulsions Psych Denies depression and Denies mood swings Physical Exam Vital Signs: Last Vital Signs Pulse 65 04/30/24 14:19 BP 120/64 04/30/24 14:19 BMI result Body Mass Index 22.8 Const Other: Appears anxious Resp Effort & Inspection: normal respiratory effort Cardio Rate: regular rate GI Other: Rectal exam - no significant external hemorrhoids; Palpation (GI): Soft to palpation Assessment & Plan Assessment & Plan (1) Hemorrhoids: Code(s): K64.9 - Unspecified hemorrhoids Category: Medical Plan: He was referred to me for hemorrhoids. I had attempted to do anoscopy on the patient. I had explained to him what procedure was. However, as soon as I started the anoscopy, he became extremely anxious and stated that he did not expect it to be this way. I therefore terminated the exam. I explained to him that I examination of the anal orifice not reveal any significant pathology although my exam is incomplete as he did not want to proceed with the anoscopy or digital exam. I did explain to him that he is welcome to come back to the office down the line if he feels mentally ready to proceed with a anoscopy and digital exam. Coding Level of Care Code New Pt Level 3 (51959) Diagnoses Hemorrhoids K64.9
== END 2024-04-30 15:06 | disposition home or self-care (01) ==
PROVIDERS: PCP Internal Medicine; Referring Provider Internal Medicine; Visit Provider Surgery
DX: K64.9 Unspecified hemorrhoids (principal)
CPT/HCPCS: 99203

== ENCOUNTER → 2024-04-30 13:55 | Outpatient (BNVA) | payer OTHER, SELFPAY | PROVIDERS: PCP Internal Medicine; Referring Provider Internal Medicine; Visit Provider Surgery | DX: K64.9 Unspecified hemorrhoids (principal) | CPT/HCPCS: 99202 ==

== ENCOUNTER 2024-08-07 08:31 | Outpatient (AMB) | payer OTHER, SELFPAY ==
--- NOTE | 2024-08-07 08:37 | A.OFFPC_ITS ---
Vital Signs 08/07/24 08:39 Height 5 ft 10 in Weight 162 lb 8 oz BMI 23.3 BP 102/72 Blood Pressure Location Lt brachial Position Sitting Respiration 14 Pulse 60 Pulse Source Pulse Oximeter Pulse Oximetry (%) 96 Oxygen Delivery Method Room Air Intake Visit Reasons: annual physical Intake Note: Physical Allergies No Known Allergies [No Known Allergies*] Allergy (Verified 08/07/24 08:38) Tobacco use date assessed: 02/05/24 Dental Screening Dental Screen Date: 02/05/24 Did you have a dental visit in the last 12 months?: Yes Did you have a dental problem in the last 6 months where you did not have access to dental care?: Yes Was dental information given to patient?: Patient has dentist (Is having trouble with them calling him back for root canals, has repeated infections) HPI HPI Comments History of Present Illness Details 24 year old male with a past medical his tory of IBS, hemorrhoids, depression, anxiety presenting for physical exam Patient has intermittent rectal discomfort, episodic bright red blood spotting on tissue paper. He has IBS is prone to frequent loose stools. Sometimes he feels swelling in the rectal area-he saw general surgery but was unable to tolerate anoscopy Since having C diff in 2021 patient has had ongoing abdominal discomfort, cramping. Has at least 3 BM per day. Mostly formed. Some brbpr intermittently due to hemorrhoids. Tried probiotic with little effect. For the past week has been having urinary hesitancy AMS:Patient denies Presented to [facility] ER on January 14 with left sided abdominal pain and a reported episode of unresponsiveness. Hit his left flank on a door knob ~5 pm causing significant pain. Between 5 and 10pm patient smoked some marijuana and ingested a few edibles which was not outside his norm. Between 945 and 10pm patient started to feel sick , nauseous. He elicited pain when pressing on the left flank He walked upstairs and says things became hazy. Sat down on a chair where he reports losing consciousness for ~10 seconds. Work up, stepmom and stepmoms friends were there and brought him to hospital. No prior similar episode. in ER EKG normal. No significant electrolyte abnormalities. . CT abd largely unremarkable Patient denies any interval episodes. Reports that he was talking with someone when he lost consciousness. They noticed nystagmus of the eyes. Deny witness of any muscle twitching, shaking, tongue biting, incontinence. Patient does endorse history of concussions none within last 6 months. Reports a few headaches a month for years. Reports decreasing visual acuity over years. Denies significant post ictal phase ROS see HPI PHYSICAL EXAM: GENERAL: Alert and oriented x 3. NAD EYES: EOMI. Anicteric. HENT: Moist mucous membranes. No scleral icterus. No cervical lymphadenopathy. LUNGS: Clear to auscultation bilaterally. CARDIOVASCULAR: Regular rate and rhythm. No murmur. No JVD. ABDOMEN: Soft, non-tender +bs : Normal penis. No palpable testicular masses EXTREMITIES: No edema. Non-tender. SKIN: No rashes or lesions. Warm. NEUROLOGIC: No focal neurological deficits. CN II-XII grossly intact PSYCHIATRIC: Cooperative. Appropriate mood and affect [facility] Medical History (Updated 08/07/24 @ 08:58 by Sara Dallas MD) Hemorrhoids Depression Eczema Imbalance Memory loss Seizures IBS (irritable bowel syndrome) Asthma Anxiety Surgical History No pertinent past surgical history Family History Mother Alcoholism Paternal Grandmother Cardiovascular disease Maternal Grandmother Alcoholism Other Substance use Social History Housing: House Patient Tobacco Use Status: Never used Tobacco Cigarette Packs Per Day: 0.5 Years Smoked: 1 e-Cigarette/Vaping Use: Former Use Second Hand Smoke Exposure: Yes (past and present) Substance Use Type: Marijuana service: Yes 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 1. Little interest or pleasure in doing things: more than half the days 2. Feeling down, depressed, or hopeless: more than half the days 3. Trouble falling or staying asleep, or sleeping too much: more than half the days 4. Feeling tired or having little energy: more than half the days 5. Poor appetite or overeating: more than half the days 6. Feeling bad about yourself - or that you are a failure or have let yourself or your family down: several days 7. Trouble concentrating on things, such as reading the newspaper or watching television: more than half the days 8. Moving or speaking so slowly that other people could have noticed. Or the opposite - being so fidgety or restless that you have been moving around a lot more than usual: not at all 9. Thoughts that you would be better off or of hurting yourself in some way: several days Total score: 14 Depression Screening Interpretation: Positive Depression Screening Follow-up: Existing condition and Community Mental Health Worker F/U Depression Screening Done: Yes 77720 - PHQ-9 Billing: Yes Source: Developed by Drs. Rigo Hernández, Anali Gibbs, Bryon Garcia and colleagues, with an educational queta from [employer]. Thrive Questionnaire Date Thrive assessed: 08/02/24 I am a: Patient What is your living situation today?: I have a steady place to live Within the past 12 months, did the food you bought not last and you didn't have the money to get more?: Never true Within the past 12 months, did you worry whether your food would run out before you got money to buy more?: Never true Do you have trouble paying for medicines?: No Do you have trouble getting transportation to medical appointments?: No Do you have trouble paying your heating and electricity bill?: No Do you have trouble taking care of your child, family member or friend?: No Do you have trouble with day-to-day activities such as bathing, preparing meals, shopping, managing finances, etc.?: No Are you currently unemployed and looking for a job?: I choose not to answer this question Are you interested in more education?: Yes Please select the resources that you would like help with: Job search/training Currently or been in a relationship where the following occur: I choose not to answer THRIVE Score: 0 AUDIT C Alcohol Use Questionnaire (AUDIT-C) 1. How often do you have a drink containing alcohol?: 2-4 times a month 2. How many drinks containing alcohol do you have on a typical day when you are drinking?: 3 or 4 3. How often do you have six or more drinks on one occasion?: Less than monthly Total Score: 4 RD-[address] - 7 assessed: 02/05/24 Feeling nervous, anxious, or on edge: 2 = More than half the days Not being able to stop or control worryin = More than half the days Worrying too much about different things: 3 = Nearly every day Trouble relaxin = Nearly every day Being so restless that it is hard to sit still: 3 = Nearly every day Becoming easily annoyed or irritable: 2 = More than half the days Feeling afraid as if something awful might happen: 3 = Nearly every day Total RD-7 score (0-4 normal; 5-9 mild; 10-14 moderate; 15-21 severe): 18 Source: Developed by Drs. Rigo Hernández, Anali Gibbs, Bryon Garcia and colleagues, with an educational queta from [employer]. Physical exam (Primary Care) Vital Signs: Last Vital Signs Pulse 60 08/07/24 08:39 Resp 14 08/07/24 08:39 BP 102/72 08/07/24 08:39 Pulse Ox 96 08/07/24 08:39 Oxygen Delivery Method Room Air 08/07/24 08:39 BMI result Body Mass Index 23.3 Tobacco/Smoking Status: Tobacco use Status Tobacco use date assessed 02/05/24 08/07/24 08:45 Patient Tobacco Use Status Never used Tobacco 08/07/24 08:45 e-Cigarette/Vaping Use Former Use 08/07/24 08:45 PHQ-9: PHQ-9 Score PHQ-9: Total score 14 08/07/24 09:16 Depression Screening Interpretation: Positive Depression Screening Follow-up: Existing condition and Community Mental Health Worker F/U Thrive Assessment: Date of Thrive Assessment Date Thrive assessed 08/02/24 08/07/24 08:45 Currently or been in a relationship where the following occur: I choose not to answer Coding Level of Care Code Est Pt Prev Care 18-39y(44865) Diagnoses Physical exam Z00.00 Change in bowel function R19.8 Urinary retention R33.9 Assessment & Plan Assessment & Plan (1) Physical exam: Code(s): Z00.00 - Encounter for general adult medical examination without abnormal findings Category: Medical Plan: Preventive measures discussed Declines flu vaccination (2) Change in bowel function: Code(s): R19.8 - Other specified symptoms and signs involving the digestive system and abdomen Category: Medical Plan: Referral gastro (3) Urinary retention: Code(s): R33.9 - Retention of urine, unspecified Category: Medical Plan: Urinalysis ordered. Labs ordered. referral sent Orders: Orders Prostate Specific Antigen Today R19.4 - Change in bowel habit, R19.8 - Other specified symptoms and signs involving the digestive system and abdomen, R33.9 - Retention of urine, unspecified, R53.83 - Other fatigue, Z00.00 - Encounter for general adult medical examination without abnormal findings Complete Blood Count Auto Diff Today R19.4 - Change in bowel habit, R19.8 - Other specified symptoms and signs involving the digestive system and abdomen, R33.9 - Retention of urine, unspecified, R53.83 - Other fatigue, Z00.00 - Encounter for general adult medical examination without abnormal findings Hemoglobin A1c Today R19.4 - Change in bowel habit, R19.8 - Other specified symptoms and signs involving the digestive system and abdomen, R33.9 - Retention of urine, unspecified, R53.83 - Other fatigue, Z00.00 - Encounter for general adult medical examination without abnormal findings Calprotectin, Fecal Today R19.4 - Change in bowel habit, R19.8 - Other specified symptoms and signs involving the digestive system and abdomen, R33.9 - Retention of urine, unspecified, R53.83 - Other fatigue, Z00.00 - Encounter for general adult medical examination without abnormal findings Pancreatic Elastase-1 Today R19.4 - Change in bowel habit, R19.8 - Other specified symptoms and signs involving the digestive system and abdomen, R33.9 - Retention of urine, unspecified, R53.83 - Other fatigue, Z00.00 - Encounter for general adult medical examination without abnormal findings Celiac Disease Panel Today R19.4 - Change in bowel habit, R19.8 - Other specified symptoms and signs involving the digestive system and abdomen, R33.9 - Retention of urine, unspecified, R53.83 - Other fatigue, Z00.00 - Encounter for general adult medical examination without abnormal findings UA CC w/rflx Micro + Cult Today R33.9 - Retention of urine, unspecified Comprehensive [place]. Panel Fast Today R19.4 - Change in bowel habit, R19.8 - Other specified symptoms and signs involving the digestive system and abdomen, R33.9 - Retention of urine, unspecified, R53.83 - Other fatigue, Z00.00 - Encounter for general adult medical examination without abnormal findings IRON PROFILE Today R19.4 - Change in bowel habit, R19.8 - Other specified symptoms and signs involving the digestive system and abdomen, R33.9 - Retention of urine, unspecified, R53.83 - Other fatigue, Z00.00 - Encounter for general adult medical examination without abnormal findings Vitamin B12 and Folate Today R19.4 - Change in bowel habit, R19.8 - Other specified symptoms and signs involving the digestive system and abdomen, R33.9 - Retention of urine, unspecified, R53.83 - Other fatigue, Z00.00 - Encounter for general adult medical examination without abnormal findings H pylori Ag Stool Today R19.4 - Change in bowel habit, R19.8 - Other specified symptoms and signs involving the digestive system and abdomen, R33.9 - Retention of urine, unspecified, R53.83 - Other fatigue, Z00.00 - Encounter for general adult medical examination without abnormal findings Lyme IgG/IgM w/reflex to WB Today R19.4 - Change in bowel habit, R19.8 - Other specified symptoms and signs involving the digestive system and abdomen, R33.9 - Retention of urine, unspecified, R53.83 - Other fatigue, Z00.00 - Encounter for general adult medical examination without abnormal findings Referrals Gastroenterology Referral R19.4 - Change in bowel habit, R19.8 - Other specified symptoms and signs involving the digestive system and abdomen, R53.83 - Other fatigue Psychology Referral F32.A - Depression, unspecified
[2024-08-07 08:39] VITALS: BP 102/72; PULSE 60; RESP 14; O2SAT 96; BMI 23.3
== END 2024-08-07 09:14 | disposition home or self-care (01) ==
LOC: HO.HMCFM 08:32
PROVIDERS: PCP Internal Medicine; Visit Provider Internal Medicine
DX: Z00.00 Encounter for general adult medical examination without abnormal findings (principal); R19.8 Other specified symptoms and signs involving the digestive system and abdomen; R33.9 Retention of urine, unspecified

== ENCOUNTER → 2024-08-07 08:31 | Outpatient (BNVA) | payer OTHER, SELFPAY | PROVIDERS: PCP Internal Medicine; Visit Provider Internal Medicine | DX: Z00.00 Encounter for general adult medical examination without abnormal findings (principal); R19.8 Other specified symptoms and signs involving the digestive system and abdomen; R33.9 Retention of urine, unspecified | CPT/HCPCS: 96127; 99395 ==

== ENCOUNTER 2024-08-07 09:20 | Outpatient (REF) | payer OTHER, SELFPAY ==
[2024-08-07 11:13] LABS: Appearance Urine Clear; Color Urine Yellow; Glucose Urine UA Negative (Negative); Leukocyte Esterase Urine Negative (Negative); Nitrite Urine Negative (Negative); Urine Blood Negative (Negative); Urine Ketones Negative (Negative); Urine Protein Negative (Neg-Trace)
[2024-08-07 11:21] LABS: MANUAL DIFF FLAG NO
[2024-08-07 11:37] LABS: Basophils Percent Auto 0.5 % (0-2); Eosinophils Absolute Auto 0.1 X10*3/uL (0.0-0.4); Eosinophils Percent Auto 1.8 % (0-4); Hematocrit 48.1 % (42.0-52.0); Hemoglobin 16.3 g/dl (14.0-18.0); Imm Gran Abs Auto 0.02 X10*3/uL (0.00-0.03); Imm Gran Pct Auto 0.3 % (0.0-0.4); Lymphocytes Absolute Auto 2.1 X10*3/uL (1.2-4.9); Lymphocytes Percent Auto 26.8 % (20-40); Mean Corpuscular HGB Conc 33.9 g/dl (31.0-36.0); Mean Corpuscular Hemoglobin 30.1 pg (27.0-33.0); Mean Corpuscular Volume 88.9 fL (80.0-98.0); Mean Platelet Volume 10.6 fL (9.4-12.4); Monocytes Absolute Auto 0.6 X10*3/uL (0.1-1.2); Monocytes Percent Auto 6.9 % (2-11); Neutrophils Absolute Auto 5.1 x10*3/uL (2.0-8.3); Neutrophils Percent Auto 63.7 % (45-73); Platelet Count 227 X10*3/uL (160-400); Red Blood Count 5.41 X10*6/uL (4.60-5.80); Red Cell Distribution Width 12.7 % (11.0-16.0)
[2024-08-07 11:42] LABS: Estimated Average Glucose 94 mg/dL; Hemoglobin A1c % 4.9 % (<6.0); Total Hemoglobin (HGBA1C) 4168.1575 umol/L
[2024-08-07 12:24] LABS: Alanine Aminotransferase 30 U/L (0-40); Albumin Level 4.6 g/dL (3.5-5.0); Alkaline Phosphatase 49 U/L (39-117); Anion Gap 11 (12-20); Aspartate Amino Transferase 21 U/L (5-37); Bilirubin Total 0.9 mg/dL (0.0-1.0); Blood Urea Nitrogen 13 mg/dL (9-16); Carbon Dioxide 29 mmol/L (22-29); Chloride 105 mmol/L (96-108); Estimated Glomerular Filt Rate > 60; Glucose Fasting 88 mg/dL (60-99); Iron 98 mcg/dL (45-160); Percent Iron Saturation 39 % (15-50); Potassium 3.9 mmol/L (3.3-5.1); Sodium 141 mmol/L (135-145); Total Iron Binding Capacity 252 mcg/dL (228-428); Total Protein 7.4 g/dL (6.5-8.0); Unsaturated Iron Binding 154 ug/dL
[2024-08-07 12:47] LABS: Folate 11.4 ng/mL (> or = 4.0); Prostate Specific Antigen 0.44 ng/mL (<0.05-4.0); Vitamin B12 434 pg/mL (200-900)
[2024-08-10 22:48] LABS: Lyme Abs Screen <0.90 index
[2024-08-11 20:03] LABS: Immunoglobulin A 256 mg/dL (47-310); Transglutaminase IgA <1.0 U/mL
== END 2024-08-07 09:21 | disposition home or self-care (01) ==
LOC: HO.WFDLDS 09:20
PROVIDERS: Visit Provider Internal Medicine
DX: Z00.00 Encounter for general adult medical examination without abnormal findings (principal); R39.9 Unspecified symptoms and signs involving the genitourinary system; R53.83 Other fatigue; R19.8 Other specified symptoms and signs involving the digestive system and abdomen; R19.4 Change in bowel habit
CPT/HCPCS: 36415; 80053; 81003; 82607; 82746; 82784; 83036; 83540; 84153; 85025; 86364; 86617; 86618

== ENCOUNTER 2024-08-14 08:19 | Outpatient (AMB) | payer OTHER, SELFPAY ==
[2024-08-14 08:32] VITALS: BMI 23.2
--- NOTE | 2024-08-14 08:32 | MHC.OFFVIS ---
Vital Signs 08/14/24 08:32 Height 5 ft 10 in Weight 162 lb BMI 23.2 Intake Visit Reasons: I-[employer] COOK: Unspecified nystagmus /BEASLEY/Unspecified coma Intake Note: Patient presents for follow up on seizure event a month ago. Allergies No Known Allergies [No Known Allergies*] Allergy (Verified 08/14/24 08:34) HPI Comments Details: Right-handed 24-yr-old male presents for new pt evaluation of isolated convulsive syncopal episode. Pt reports in January, he was having a typical day, outside of around 5pm when he had accidentally hit the left side of his abdomen while trying to walk through a doorway and hip checked the door/doorknob w/ his left side. Later that evening around 10pm, pt he was sitting down in his living room working on a laptop, started to not feel well. He walked upstairs, took some water, and walked back down stairs. He then sat down, had LOC x's ~10 seconds which was witnessed, his head fell back, eyes rolled back, his body shook some. He came to pretty quickly, and had postictal confusion and tiredness. Denies intraictal tongue biting or loss of spincter control. He was brought to the ER. Work-up showed LLQ subcutaneous soft tissue abd contusion. Head imaging was deferred. Pt was dx'd w/ probable vasovagal syncope. He had never had a similar episode before or since. He does have a h/o spacing out, stemming back to at least high school. Reviewed ER note w/ pt- he confirms history as accurate. However, he states the left abdominal pain was 4/10 and does not feel the pain was strong enough to cause him to pass out. He had sustained the left flank pain d/t Pt reports normal gestational and early development, though did need [employer] PUR[employer] SERVICER in 2nd grade for stuttering/enunciation. Pt was an average student in elementary school, then a straight A student in high school and graduated. After high school, he has worked a variety of jobs. 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 Pt denies family h/o seizure, migraine, or other neurological disorders. Pt reports paternal family h/o cardiac dz- ex great grandparent of heart dz in 40-50s- not in his father however father does not have routine medical care. Brother has ? congenital cardiac condition. [facility] ER note from 01/16/2024: This is a 23-year-old male with a history of IBS presenting today with left-sided abdominal pain as well as an episode of unresponsiveness . ?He inadvertently hit his left flank on a doorknob at around 5 PM which did cause his fairly significant amount of pain. ?He then smoked some marijuana and had a couple of edibles, which is normal for him. ?At around 945 or 10 PM the patient was feeling sick which was then described as nausea after he was pushing on his left flank. ?He then walked upstairs and things became hazy . ?He then went and sat on a chair. ?He apparently lost consciousness for 10 seconds. ?When he awoke he reports that he this was witnessed by his stepmother (not present) as well as a couple of his stepmother's friends. ?He was then brought to the hospital. ?No current nausea. ?He did not vomit. ?No diaphoresis. ?No chest pain or shortness of breath. ?No history of DVT, PE, unilateral leg swelling, recent travel immobilization, exogenous hormone use. ?He denies any hemoptysis. ?There is no family history of early cardiac . ?He denies any palpitations. ?This has never happened to him before. 01/16/24, [facility] Work-up: EKG: Sinus rhythm at 81 bpm, normal axis, normal intervals, no ST segment changes.. ? CT Abdomen/pelvis: 1. ?Very mild subcutaneous soft tissue contusion in the left lower quadrant. 2. ?Moderate gastric distention may represent gastroparesis. ?No evidence of small bowel obstruction. 3. ?Mild bladder wall thickening may be related to underdistention or cystitis.. ? Labs- CBC/CMP- WNL. Mag 2.4 H. Ethanol- negative. Lactate- n/a, Tox screen- n/a. 03/05/2024, [facility], MR/MR head/brain wo/w con IMPRESSION: 1. No evidence of intracranial hemorrhage, acute infarction, mass effect, edema, or abnormal contrast enhancement. 2. No seizure foci identified. No white matter signal abnormalities identified, the hippocampi appear normal, and no cortical dysplasia or evidence of heterotopic sorto matter. 3. No abnormal patterns of atrophy. PMH and ROS are also notable for:? General: hearing loss. fatigue, confusion, sexual difficulty, headaches Musculoskeletal disorders or injury: some neck and back pain History of concussion/head injury: has had a few concussions w/ LOC w/o prolonged s/s- last in February 2023. Mood d/o: Anxiety, Depression Respiratory d/o: Asthma CV disease: states he was feeling an abnormal heart beat for a while, now occurs occasionally. EKG was normal, was asymptomatic during EKG. GI d/o: had C-diff in 2020 secondary to ABT tx for epididymitis- since he has had IBS s/s. Sleep difficulties: Endorses: night sweats, difficulty initiating and maintaining sleep, Sleepiness when inactive, Fatigue, Restless sleep Caffeine use: 2 cups of green tea per day. Used to take energy drinks. Substance use: Starting smoking cigarettes in highschool- trying to quit- taking few puffs every few days, Marijuana- a few bong inhalations before and after work, Alcohol- socially- a beer or two. Pertinent denials include: Vision changes, diplopia, dizziness, CV disease, Clotting or hematology d/o, Endocrine d/o, metabolic d/o, Headache questionnaire:? Typical headache characteristics: Prodrome symptoms: unsure Aura: none Pain intensity: moderate- 6-7/10 Location, quality, characteristics: Throbbing pain behind his left eye and wraps around the whole head. Associated symptoms: photophobia, fatigue, cognitive difficulties, activity intolerance. Postdrome: lingers Triggers: poor fluid intake, hunger Time of day: Typically in the am or at night. Duration and Frequency: Once every 1-2 weeks lasting a couple of hours How does headache impact your life? sometimes needs to sleep it off. not needing to miss work Current acute medication use/interventions: Ibuprofen 200-400mg helps. Current preventative medication use: none Non-pharmacological interventions: Sleeping x's 2 hrs helps. 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 Current occupational exposures/hazards: No Cognitive needs: No Hearing needs: Yes (tinnitus ) Vision needs: No Physical Exam Vital Signs: BMI result Body Mass Index 23.2 Const Orientation/consciousness: patient oriented x3 Resp Effort & Inspection: normal respiratory effort and able to speak in complete sentences Neuro General: patient oriented x3 Cranial nerves: Yes CN's II-XII intact bilaterally Cognition (Neuro): normal cognition Gait exam (Neuro): Normal gait present Motor exam (neuro): 5/5 motor strength present throughout Deep tendon reflexes (DTR's): Right triceps reflex intensity grade: 2+, Left triceps reflex intensity grade: 2+, Rt Biceps (C5, C6): 2+, Left biceps reflex intensity grade: 2+, Right brachioradialis reflex intensity grade: 2+, Left brachioradialis reflex intensity grade: 2+, Right patellar reflex intensity grade: 2+ and Left patellar reflex intensity grade: 2+ Coordination: [id number] test normal, tandem gait normal and Romberg test negative Pupils: Normal pupillary reactivity/response: bilateral Psych Appearance: grossly normal Mental Status: mental status grossly normal Speech and movement: Normal speech and movement present Affect: normal affect Attitude: cooperative Thought process: Normal thought process present Assessment & Plan Assessment & Plan (1) Headache: Comment: probable migraine without aura Code(s): R51.9 - Headache, unspecified Category: Medical Qualifiers: Headache chronicity pattern: episodic headache Headache type: unspecified Intractability: not intractable Qualified Code(s): R51.9 - Headache, unspecified (2) Seizure-like activity: Code(s): R56.9 - Unspecified convulsions Category: Medical (3) Convulsive syncope: Code(s): R55 - Syncope and collapse Category: Medical Plan For isolated episode of convulsive syncope in setting of h/o spacing out episodes of unknown etiology: Reviewed brain MRI- unremarkable MRI. Reviewed [facility] ER notes- unfortunately- tox screen and lactate levels were not obtained. Will obtain Baseline EEG. Will obtain 72 Hr Holter. Pt has not had another convulsive syncopal episode in > 6 months, however reviewed that if he has another episode or feels as if he would have another episode, he should NOT drive or engage in high risk activities x's at least 6 months. For acute headache treatment: May continue Ibuprofen 400-600mg q 4-6hrs prn. Previous acute headache medication trials: none Acute migraine medication contraindications: none at this time Will follow-up upon review of above and patient to follow-up in clinic in 6 months or sooner prn. Coding Level of Care Code New Pt Level 4 (78678) Diagnoses Nonintractable episodic headache, unspecified headache type R51.9 Headache chronicity pattern: episodic headache Headache type: unspecified Intractability: not intractable Seizure-like activity R56.9 Convulsive syncope R55
== END 2024-08-14 09:43 | disposition home or self-care (01) ==
LOC: HO.HSMS 08:20
PROVIDERS: PCP Internal Medicine; Visit Provider Nurse Practitioner Family
DX: R51.9 Headache, unspecified (principal); R56.9 Unspecified convulsions; R55 Syncope and collapse
CPT/HCPCS: 99204

== ENCOUNTER → 2024-08-14 08:19 | Outpatient (BNVA) | payer OTHER, SELFPAY | PROVIDERS: PCP Internal Medicine; Visit Provider Nurse Practitioner Family | DX: R51.9 Headache, unspecified (principal); R56.9 Unspecified convulsions; R55 Syncope and collapse | CPT/HCPCS: 99202 ==

== ENCOUNTER 2024-11-05 10:03 | Outpatient (REF) | payer OTHER, SELFPAY ==
--- NOTE | 2024-11-05 10:09 | EEG_ITS ---
This is a 16-channel EEG during the tracing. Background EEG rhythm is about 12 to 14 hertz, 5 to 20 microvolt posteriorly and lower amplitude fast anteriorly. Frequent movement muscle and lead artifacts are noted. At times, transition to low amplitude fast rhythm is noted. Photic stimulation does not produce any significant abnormality. Hyperventilation is unremarkable. Cardiac lead does not reveal any significant abnormality. IMPRESSION: No significant abnormality noted on this EEG. MD JAIRON Julian/CABRERA / [id number]
--- OUTSIDE RECORDS SUMMARY | 2024-11-05 13:14 | XMS_ITS | Encounter Summary ---
Author Organization [facility] Address [address] [place] [address] Phone Care Team Providers Care Teacher Early Childhood Development Name Role Phone Claudia Basilio MD Primary Care Provider [phone] Encounter Details Date Type Department Care Team (Late st Contact Info) Description 05/23/2017 Conversion Encounter [facility] [address] [place] [address] Social History Tobacco Use Types Packs/Day Years Used Date Smoking Tobacco: Never Comments:Never smoker Sex and Gender Information Value Date Recorded Sex Assigned at Not on file Legal Sex Male 4:57 PM EDT Gender Identity Not on file Sexual Orientation Not on file documented as of this encounter Plan of Treatment Not on file documented as of this encounter Visit Diagnoses Not on filedocumented in this encounter Care Teams Teacher Early Childhood Development Relationship Specialty Start Date End Date Claudia Basilio MD [address] [place] [id number] PCP - General 05/17/17 05/13/23 documented as of this encounter
--- OUTSIDE RECORDS SUMMARY | 2024-11-05 13:14 | XMS_ITS | Clinical Summary ---
Author Organization [facility] Address [address] [place] [address] Phone Care Team Providers Care Film Producer Name Role Phone Unavailable Primary Care Provider Unavailabl e Allergies No known active allergies Medications albuterol HFA 108 (90 Base) MCG/ACT inhaler INHALE 2 PUFFS 4 TIMES A DAY NEEDED FOR WHEEZING 08/09/2020 Active Active Problems Problem Noted Date Diagnosed Date Anxiety 01/22/2023 Overview (02/14/2023): 02/09/23 - Pt was seen for a brief meet and greet due to family stressors (mother relapsed with drug and alcohol use) and anxiety a few week ago and followed up with [facility] for support. Pt reports significant social anxiety, feeling anxious before social events and then ruminating over things he said/ did not say and how people perceive him. Assessment & Plan (02/14/2023 2:03 PM EDT): Pt agreed to follow-up with [facility] for an initial consult, but indicated that he was not interested in further follow-up for short-term support, but would rather connect with an outpatient therapist - provided pt with a list of referrals to explore and indicated for him to call if he needed further support. Assessment & Plan (01/22/2023 9:31 AM EDT): Reports having been anxious for awhile and likely had a panic attack when had chest pain a couple of months ago; is ready now to find someone to talk with. WHO done today with one of our psychologists here. Is in process of making appointment with a new primary care provider. Will meet with therapist first and then work on that transition prior to 23st birthday Generalized abdominal pain 07/27/2022 Assessment & Plan (07/27/2022 5:03 PM EDT): Being followed by [facility]; needs to call and follow up with them COVID-19 vaccination refused 09/14/2021 Assessment & Plan (11/07/2021 3:57 PM EST): 11/07/2021 Assessment & Plan (09/14/2021 9:13 AM EST): 09/14/2021 Marijuana use 07/26/2021 Assessment & Plan (09/14/2021 9:14 AM EST): Uses it daily; discussed dangers and strongly encouraged to avoid Assessment & Plan (07/26/2021 5:23 PM EDT): Would not use, at least when sick. Refused influenza vaccine 09/23/2020 Assessment & Plan (11/07/2021 3:57 PM EST): 11/07/2021 Assessment & Plan (09/14/2021 9:13 AM EST): 09/14/2021 Resolved Problems Problem Noted Date Diagnosed Date Resolved Date Testicular pain, right 05/11/202201/22 Overview (05/11/2022): 05/11/2022 acute, severe, negative US and screening labs. Personal history of COVID-19 02/26/2022 01/22/2023 Overview (03/01/2022): 12/07/2021 Pediatric obesity due to exc ess calories without serious comorbidity 08/14/2011 03/22/2020 Immunizations Name Administration Dates Next Due DTaP 5 06/27/2006, 4,2002, 002,2002 HPV Vaccine 9 Valent 08/15/2016,05/11/2015 Hep A, ped/adol 08/15/2016,05/11/2015 Hep B, ped/adol 02/15/2003,2002,2002 Hib (PRP-T) 09/20/2003, 3,2002, 002 IPV 06/27/2006, 3,2002, 002 Influenza Split 09/14/2011 Influenza, intranasal, quadrivalent 09/11/2013 MMR 06/27/2006,05/31/2003 Meningococcal Conj (Menactra) MCV4P 03/22/2020,1 11/12/2012 Pneumococcal Conjugate 09/20/2003,2002,2002, 002 Tdap 09/11/2013 Varicella 05/22/2007,05/31/2003 Family History Relation Name Status Comments Father Alive Father: Alive a nd well Maternal Grandfather Materna l grandfather: Heart disease Mother Alive Mother: Alive a nd well Other Family history of Elevated cholesterol, Family history of Migraines, Family history of ADD/ADHD, Family history of Diabetes mellitus, Family history of Asthma, Family history of Obesity Social History Tobacco Use Types Packs/Day Years Used Date Smoking Tobacco: Never Smokeless Tobacco: Never Comments:Never smoker Alcohol Use Standard Drinks/Week Comments No 0 (1 standard drink = 0.6 oz pur e alcohol) Hunger/Food Answer Date Recorded In the last 12 months, did y ou or your family ever eat less than you felt you should because there wasn't enough money for food? No 11/07/2021 Stable Housing Answer Date Recorded Are you worried that in the next 2 months you may not have stable housing? No 11/07/2021 Transportation Concerns Answer Date Rec orded In the last 12 months, have you or your family ever had to go without healthcare because you didn't have a way to get there? No 11/07/2021 Hazards in Home Answer Date Recorded Think about the place you li ve. Do you have problems with any of the following? Pests (mice or roaches), mold, no/not working smoke detectors, water leaks, no window guards. No 2021 Financing Utilities Answer Date Recorde d In the last 12 months, has t he electric, gas, oil, or water company threatened to shut off your services in your home? No 11/07/2021 Safety at Home Answer Date Recorded Are you or your family worried about feeling saf e in your home? No 11/07/2021 Outside Support Answer Date Recorded Do you feel that you need mo re support from other people or programs to help you care for yourself or your family? No 11/07/2021 Understanding Health Concerns Answer Da te Recorded Do you need help understandi ng your or your child's healthcare needs (diagnosis, medications, plan, etc.)? No 11/07/2021 Financing Health Concerns Answer Date R ecorded In the last 12 months, was t here a time when your child needed to see a doctor or get medications or supplies but could not because of cost? No 11/07/2021 Missing School or Work Answer Date Tony rded Did you or your child miss s chool or work because of a health problem that could have been avoided? No 11/07/2021 Sex and Gender Information Value Date Recorded Sex Assigned at Not on file Legal Sex Male 4:57 PM EDT Gender Identity Not on file Sexual Orientation Not on file Last Filed Vital Signs Vital Sign Reading Time Taken Comments Blood Pressure 122/69 01/22/2023 9:00 AM EDT Pulse 73 01/22/2023 9:00 AM EDT Temperature 37.1 ??C (98.8 ??F) 01/22/2023 9:00 AM ED T Respiratory Rate - - Oxygen Saturation - - Inhaled Oxygen Concentration - - Weight 78.5 kg (173 lb) 01/22/2023 9:00 AM EDT Height 175.3 cm (5' 9 ) 11/07/2021 3:46 PM EST Body Mass Index 25.55 11/07/2021 3:46 PM EST Plan of Treatment Health Maintenance Due Date Last Done Comments Men B Vaccine (1 of 2 - Standard) 2018 DTaP,Tdap,and Td Vaccines (7 - Td or Tdap) 09/11/2023 09/11/2013, 06/27/2006, 12/02/2003, Additional history exists Influenza Vaccines (#1) 2024 09/11/2013, 09/14 COVID-19 Vaccine (2023-2 5 season) 2024 Hepatitis B Vaccines Completed 02/15/2003, 2002, 2002 HIB Vaccines Completed 09/20/2003, 12/2002, 2002, Additional history exists Pneumococcal Vaccine Completed 09/20/2003, 2002, 2002, Additional history exists IPV Vaccines Completed 06/27/2006, 02/04, 2002, Additional history exists MMR Vaccines Completed 06/27/2006, 05/31/2003 Varicella Vaccines Completed 05/22/2007, 05/31/2003 HPV Vaccines Completed 08/15/2016, 05/11/2015 Hepatitis A Vaccines Completed 08/15/2016, 05/11/20 15 Meningococcal Vaccine Completed 03/22/2020, 013 Insurance [facility] NON PCC [facility] ACO [employer] ACO [facility] NON PCC
--- OUTSIDE RECORDS SUMMARY | 2024-11-05 13:14 | XMS_ITS | Encounter Summary ---
Author Organization [facility] Address [address] [place] [address] Phone Care Team Providers Care Range Aid Name Role Phone Claudia Basilio MD Primary Care Provider [phone] Encounter Details Date Type Department Care Team (Late st Contact Info) Description 05/18/2014 Documentation [facility] Family Medicine [address] [place], [place] [id number] Family Medicine, Physician [address] [place] [address] Social History Tobacco Use Types Packs/Day Years Used Date Smoking Tobacco: Never Assessed Sex and Gender Information Value Date Recorded Sex Assigned at Not on file Legal Sex Male 4:57 PM EDT Gender Identity Not on file Sexual Orientation Not on file documented as of this encounter Plan of Treatment Not on file documented as of this encounter Visit Diagnoses Not on filedocumented in this encounter Care Teams Range Aid Relationship Specialty Start Date End Date Claudia Basilio MD [address] [place] [address] [place] [address] PCP - General 05/17/17 05/13/23 documented as of this encounter
--- OUTSIDE RECORDS SUMMARY | 2024-11-05 13:14 | XMS_ITS | Clinical Summary ---
Author Organization [facility] Address [address] [place] [address] [address] [place] [address] Care Team Providers Care Distribution Warehouse Manager Name Role Phone Unavailable Primary Care Provider Unavailabl e Allergies No known active allergies Medications No known medications Social History Tobacco Use Types Packs/Day Years Used Date Smoking Tobacco: Every Day Cigarettes Tobacco Cessation:Ready to Q uit: Not Asked; Counseling Given: Not Answered Comments:1 cigarette a day Sex and Gender Information Value Date Recorded Sex Assigned at Male 11/11/2023 8:26 AM EST Legal Sex Male 8:22 AM EST Gender Identity Male 11/11/2023 8:26 AM EST Sexual Orientation Choose not to disclose 2023 8:26 AM EST Plan of Treatment Health Maintenance Due Date Last Done Comments Chlamydia and Gonorrhea Screening 2002 Dental Oral Exam 2002 Dental Prophylaxis 2002 Dental X-Ray: Bitewings 2002 Depression Screening 2002 HIV Screening 2002 Lipid Panel 2002 SDOH Screening 2002 Pneumococcal Vaccine: Pediat rics (0 to 5 Years) and At-Risk Patients (6 to 49) Years) (1 of 2 - PCV) 2008 Alcohol/Substance Use Screening 2014 Family Planning (PISQ) 2017 HPV Vaccines (1 - Male 3-dos e series) 2017 Hepatitis C Screening 2020 DTaP/Tdap/Td Vaccines (1 - Tdap) 2021 Hepatitis B Vaccines (1 of 3 - 19+ 3-dose series) 2021 COVID-19 Vaccine ( - 2023-2 5 season) 2024 Influenza Vaccine (#1) 2024 Tobacco Screening 11/11/2024 11/11/2023 Dental X-Ray: Full Mouth 11/12/2026 11/11/2023 Zoster Vaccines (1 of 2) 2052 RSV Patients and Pa tients Aged 60 years or older (1 - 1-dose 75+ series) 2077 HIB Vaccines Aged Out No longer eligi ble based on patient's age to complete this topic Hepatitis A Vaccines Aged Out No long er eligible based on patient's age to complete this topic IPV Vaccines Aged Out No longer eligi ble based on patient's age to complete this topic Meningococcal Vaccine Aged Out No celio taya eligible based on patient's age to complete this topic RSV under 20 months Aged Out No longe r eligible based on patient's age to complete this topic Rotavirus Vaccines Aged Out No longer eligible based on patient's age to complete this topic Procedures Procedure Name Priority Date/Time Associated Diagnosis Comments PANORAMIC RADIOGRAPHIC IMAGE Routine 11/11/2023 10:30 AM EST from Last 3 Months or Most Recently Relevant to Health Maintenance Insurance [facility] MEDICAID STAND ADULT
== END 2024-11-05 10:04 | disposition home or self-care (01) ==
LOC: HO.NEURO 10:03
PROVIDERS: PCP Internal Medicine; Visit Provider Nurse Practitioner Family
DX: R56.9 Unspecified convulsions (principal); R55 Syncope and collapse
CPT/HCPCS: 93242; 95816

== ENCOUNTER → 2024-11-05 10:14 | Outpatient (BNV) | payer OTHER, SELFPAY | PROVIDERS: PCP Internal Medicine; Visit Provider Internal Medicine Cardiovascular Disease | DX: R00.1 Bradycardia, unspecified (principal) | CPT/HCPCS: 93244 ==

== ENCOUNTER 2025-01-27 09:37 | Outpatient (AMB) | payer OTHER, SELFPAY ==
--- NOTE | 2025-01-27 09:40 | A.OFFPC_ITS ---
Vital Signs 01/27/25 09:42 Height 5 ft 10 in Weight 163 lb BMI 23.4 BP 120/60 Blood Pressure Location Rt brachial Position Sitting Pulse 64 Pulse Source Pulse Oximeter Pulse Oximetry (%) 98 Oxygen Delivery Method Room Air Intake Visit Reasons: 6 Months F/U (Get ins) Intake Note: Emergency room follow up. Wanted to address a six month follow up that was rescheduled with Dr Stevens is time is allowed. refill on albuterol Iron Worker Foreman Required: No Allergies No Known Allergies [No Known Allergies*] Allergy (Verified 01/27/25 09:41) Medication List - Last Reconciled 01/27/25 by Francisca Tavares PA-C albuterol sulfate 90 mcg/actuation 2 puffs inhalation Q6H PRN Tobacco use date assessed: 01/27/25 Dental Screening Dental Screen Date: 02/05/24 HPI 6 Months F/U (Get ins) HPI Details Patient is a 24-year-old male who presents today for a follow up. Normally follows with Dr. Stevens. Msk: He recently went to the ER on 01/11 with complaints of neck pain, back pain and shoulder pain. He fell down 5 or 6 stairs. States that his sock got caught on a nail on the stair and he then slipped and hit the left side of his body on the railing. He did not hit his head on the ground or lose consciousness. He states that he did hit his head/neck into the railing. He has full range of motion of everything but states that he is still very sore with movement and tender if he pushes on certain areas. He is not weak. No bruising or swelling. -he is not interested in physical therap y right now as he is worried about the cost of things. He states that he has had some insurance issues recently and was just given a surprise bill and behavioral health. Psych: He states he got a surprise $1,800 bill for receiving therapy the last few months. It has been helpful to see a therapist but not at that asif. He has not yet called his insurance company.. PULM: States that he needs a refill on his albuterol today. No recent exacerbations but he accidentally washed his inhaler. [facility] Medical History Hemorrhoids Depression Eczema Imbalance Memory loss Seizures IBS (irritable bowel syndrome) Asthma Anxiety Surgical History No pertinent past surgical history Family History Mother Alcoholism Paternal Grandmother Cardiovascular disease Maternal Grandmother Alcoholism Other Substance use Social History (Updated 01/27/25 @ 09:46 by Laina Kim CMA) Housing: House Alcohol intake: former Patient Tobacco Use Status: Former Tobacco user Cigarette Packs Per Day: 0.5 Years Smoked: 1 e-Cigarette/Vaping Use: Former Use Second Hand Smoke Exposure: Yes (past and present) Substance Use Type: Marijuana service: Yes 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 Current occupational exposures/hazards: No Cognitive needs: No Hearing needs: Yes (tinnitus ) Vision needs: No Questionnaire Thrive Questionnaire Date Thrive assessed: 08/02/24 I am a: Patient What is your living situation today?: I have a steady place to live Within the past 12 months, did the food you bought not last and you didn't have the money to get more?: Never true Within the past 12 months, did you worry whether your food would run out before you got money to buy more?: Never true Do you have trouble paying for medicines?: No Do you have trouble getting transportation to medical appointments?: No Do you have trouble paying your heating and electricity bill?: No Do you have trouble taking care of your child, family member or friend?: No Do you have trouble with day-to-day activities such as bathing, preparing meals, shopping, managing finances, etc.?: No Are you currently unemployed and looking for a job?: I choose not to answer this question Are you interested in more education?: Yes Please select the resources that you would like help with: Job search/training Currently or been in a relationship where the following occur: I choose not to answer THRIVE Score: 0 AUDIT C Alcohol Use Questionnaire (AUDIT-C) 1. How often do you have a drink containing alcohol?: Never 3. How often do you have six or more drinks on one occasion?: Never Total Score: 0 RD-[address] - 7 assessed: 02/05/24 Source: Developed by Drs. Rigo L. BettyAnali koroma, Bryon Garcia and colleagues, with an educational queta from [employer]. Physical exam (Primary Care) Vital Signs: Last Vital Signs Pulse 64 01/27/25 09:42 BP 120/60 01/27/25 09:42 Pulse Ox 98 01/27/25 09:42 Oxygen Delivery Method Room Air 01/27/25 09:42 BMI result Body Mass Index 23.4 Tobacco/Smoking Status: Tobacco use Status Tobacco use date assessed 01/27/25 01/27/25 09:44 Patient Tobacco Use Status Former Tobacco user 01/27/25 09:46 e-Cigarette/Vaping Use Former Use 01/27/25 09:46 Thrive Assessment: Date of Thrive Assessment Date Thrive assessed 08/02/24 01/27/25 09:44 Currently or been in a relationship where the following occur: I choose not to answer Const Orientation/consciousness: patient oriented x3 HENMT Ears: hearing grossly normal bilaterally Neck Neck: Yes normal visual inspection, Yes full ROM and Yes supple Thyroid: Thyroid normal Lymphatic: no lymphadenopathy noted Resp Auscultation: clear to auscultation bilaterally Cardio Rate: regular rate Rhythm: regular rhythm Heart sounds: S1 normal heart sound present and S2 normal heart sound present GI Inspection: Yes normal to inspection Palpation (GI): Soft to palpation and Other GI palpation findings present (nontender, no cva tenderness) Auscultation: normoactive bowel sounds Rectal Exam - Male: Yes deferred Back/Spine/Pelvis Cervical Spine: cervical ROM normal and cervical muscular tenderness Thoracic/Lumbar Spine: thoracic and lumbar spine normal to inspection, thoraco- lumbar ROM normal and paraspinal muscle tenderness Skin General skin exam: no rashes or lesions noted Neuro General: patient oriented x3, gait normal, no focal motor deficits and CN's II- XI intact bilaterally Motor exam (neuro): 5/5 motor strength present throughout Sensory Exam: double simultaneous stimulation for sensation normal Extrem Other: Empty can test negative. Speed's test negative General: Yes normal to inspection, Yes full ROM and Yes capillary refill normal Coding Level of Care Code Est Pt Level 4 (02391) Complex EM visit Add On G2211 Diagnoses Neck pain M54.2 Upper back pain M54.9 Left shoulder pain M25.512 Depression F32.A Assessment & Plan Assessment & Plan (1) Neck pain: Code(s): M54.2 - Cervicalgia Category: Medical Plan: Reviewed imaging from the ER. I have encouraged patient to apply he into work on gentle stretching. We did review stretches today. He may use Motrin as needed. He will let me know if he wishes to pursue physical therapy. He will follow up short term to be reassessed. Sooner if anything worsens or changes. (2) Upper back pain: Code(s): M54.9 - Dorsalgia, unspecified Category: Medical Plan: As above (3) Left shoulder pain: Code(s): M25.512 - Pain in left shoulder Category: Medical Plan: As above (4) Depression: Code(s): F32.A - Depression, unspecified Category: Medical Plan: Has followed with behavioral health recently. Stable. It is going to look into the billing. Has found therapy to be beneficial for himself however, obviously the asif is expensive and we did discuss that this is likely a billing error. We did discuss that he can contact his insurance company for a provider who is also in his network and I can put in a new referral for him. Advised to seek emergent medical treatment if anything worsens or changes. Medications: New albuterol sulfate 90 mcg/actuation 2 puffs inhalation Q6H PRN 8.5 grams 3RF shortness of breath or wheezing
[2025-01-27 09:42] VITALS: BP 120/60; PULSE 64; O2SAT 98; BMI 23.4
--- OUTSIDE RECORDS SUMMARY | 2025-01-27 10:48 | XMS_ITS | Encounter Summary ---
Author Organization [facility] Address [address] [place] [address] Phone Care Team Providers Care Dispensary Clerk Name Role Phone Claudia Basilio MD Primary Care Provider [phone] Encounter Details Date Type Department Care Team (Late st Contact Info) Description 05/23/2017 Conversion Encounter [facility] [address] [place] [address] Social History Tobacco Use Types Packs/Day Years [...] on filedocumented in this encounter Care Teams Dispensary Clerk Relationship Specialty Start Date End Date Claudia Basilio MD [address] [place] [id number] PCP - General 05/17/17 05/13/23 documented as of this encounter
--- OUTSIDE RECORDS SUMMARY | 2025-01-27 10:48 | XMS_ITS | Clinical Summary ---
Author Organization [employer] Address [address] [place] [address] [address] [place] [address] Care Team Providers Care African History Professor Name Role Phone Unavailable Primary Care Provider [...] 2002 Depression Screening 2002 HIV Screening 2002 SDOH Screening 2002 Alcohol/Substance Use Screening 2014 Tobacco Screening 2014 Family Planning (PISQ) 2017 HPV Vaccines (1 - Male 3-dos e series) 2017 Hepatitis C Screening 2020 DTaP/Tdap/Td Vaccines (1 - Tdap) 2021 Hepatitis B Vaccines (1 of 3 - 19+ 3-dose series) 2021 Pneumococcal Vaccine: Pediat rics (0 to 5 Years) and At-Risk Patients (6 to 49) Years) (1 of 2 - PCV) 2021 COVID-19 Vaccine ( - 2023-2 5 season) 2024 Influenza Vaccine (#1) 2024 Dental X-Ray: Full Mouth 11/12/2026 11/11/2023 Zoster [...] Most Recently Relevant to Health Maintenance Insurance [facility] MEDICAID STAND ADULT
--- OUTSIDE RECORDS SUMMARY | 2025-01-27 10:48 | XMS_ITS | Clinical Summary ---
Author Organization [facility] Address [address] [place] [address] Phone Care Team Providers Care Napper Fixer Name Role Phone Unavailable Primary Care Provider [...] few week ago and followed up with [facility] for support. Pt reports significant social anxiety, feeling anxious before social events and then ruminating over things he said/ did not say and how people perceive him. Assessment & Plan (02/14/2023 2:03 PM EDT): Pt agreed to follow-up with [facility] for an initial consult, but indicated that [...] calories without serious comorbidity 08/14/2011 03/22/2020 Immunizations Immunization Administration Dates Next Due DTaP 5 06/27/2006, [...] 15 Meningococcal Vaccine Completed 03/22/2020, 013 Insurance [facility] NON PCC [facility] ACO [employer] ACO [facility] NON PCC
--- OUTSIDE RECORDS SUMMARY | 2025-01-27 10:48 | XMS_ITS | Encounter Summary ---
Author Organization [facility] Address [address] [place] [address] Phone Care Team Providers Care Rehabilitation Consultant Name Role Phone Claudia Basilio MD Primary Care Provider [phone] Encounter Details Date Type Department Care Team (Late st Contact Info) Description 05/18/2014 Documentation [facility] [place] [address] [place], [place] [phone] Family Medicine, Physician [address] [place] [address] Social History Tobacco Use Types Packs/Day Years [...] on filedocumented in this encounter Care Teams Rehabilitation Consultant Relationship Specialty Start Date End Date Claudia Basilio MD [address] [place] [address] [place] [address] PCP - General 05/17/17 05/13/23 documented as of this encounter
== END 2025-01-27 10:04 | disposition home or self-care (01) ==
LOC: HO.HMCFM 09:38
PROVIDERS: PCP Internal Medicine; Visit Provider Physician Assistant
DX: M54.2 Cervicalgia (principal); M54.9 Dorsalgia, unspecified; M25.512 Pain in left shoulder; F32.A Depression, unspecified

== ENCOUNTER → 2025-01-27 09:37 | Outpatient (BNVA) | payer OTHER, SELFPAY | PROVIDERS: PCP Internal Medicine; Visit Provider Physician Assistant | DX: M54.2 Cervicalgia (principal); M54.6 Pain in thoracic spine; M25.512 Pain in left shoulder; F32.A Depression, unspecified | CPT/HCPCS: 99212 ==

== ENCOUNTER 2025-02-08 08:46 | Outpatient (AMB) | payer OTHER, SELFPAY ==
[2025-02-08 08:55] VITALS: BP 112/70; PULSE 76; O2SAT 98; BMI 23.0
--- NOTE | 2025-02-08 08:55 | A.OFFVIS_ITS ---
Vital Signs 02/08/25 08:55 Height 5 ft 10 in Weight 160 lb BMI 23.0 BP 112/70 Blood Pressure Location Rt brachial Pulse 76 Pulse Source Pulse Oximeter Pulse Oximetry (%) 98 Oxygen Delivery Method Room Air Intake Visit Reasons: 6 mo f/u Intake Note: Patient presents month follow up for headaches/seizures. Table Hand Required: No Accompanied by: Self / Same As Patient Allergies No Known Allergies [No Known Allergies*] Allergy (Verified 02/08/25 08:56) Medication List - Last Reconciled 02/08/25 by JING Stevenson albuterol sulfate 90 mcg/actuation 2 puffs inhalation Q6H PRN HPI Comments Details: 24-yr-old presents for Pt reports about a month ago, he had a mechanical fall down a flight of stairs- struck his left shoulder in the banister. Does not believe he hit his head. He did have a [facility] eval- C-spine and t-spine x-rays were reported as negative. Was d/c'd with cyclobenzaprine, helped for a few dyas and then then seemed to exacerbate the tightness. Since, he has been feeling left neck pain, soreness, stiffness, left neck/trap tingling, and increase in his typical headaches. Denies cervical shooting, arm weakness, UE numbness. Oct 2024, EEG was unremarkable. Oct 2024 48 Hr Holter showed baseline NSR. 08/14/2024, Initial HPI: Right-handed 24-yr-old male presents for new pt evaluation of isolated convulsive syncopal episode. Pt reports in January, he was having a typical day, outside of around 5pm when he had accidentally hit the left side of his abdomen while trying to walk through a doorway and hip checked the door/doorknob w/ his left side. Later that evening around 10pm, pt he was sitting down in his living room working on a laptop, started to not feel well. He walked upstairs, took some water, and walked back down stairs. He then sat down, had LOC x's ~10 seconds which was witnessed, his head fell back, eyes rolled back, his body shook some. He came to pretty quickly, and had postictal confusion and tiredness. Denies intraictal tongue biting or loss of spincter control. He was brought to the ER. Work-up showed LLQ subcutaneous soft tissue abd contusion. Head imaging was deferred. Pt was dx'd w/ probable vasovagal syncope. He had never had a similar episode before or since. He does have a h/o spacing out, stemming back to at least high school. Reviewed ER note w/ pt- he confirms history as accurate. However, he states the left abdominal pain was 4/10 and does not feel the pain was strong enough to cause him to pass out. He had sustained the left flank pain d/t Pt reports normal gestational and early development, though did need RETURNED CASE INSPECTOR in 2nd grade for stuttering/enunciation. Pt was an average student in elementary school, then a straight A student in high school and graduated. After high school, he has worked a variety of jobs. 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 Pt denies family h/o seizure, migraine, or other neurological disorders. Pt reports paternal family h/o cardiac dz- ex great grandparent of heart dz in 40-50s- not in his father however father does not have routine medical care. Brother has ? congenital cardiac condition. [facility] ER note from 01/16/2024: This is a 23-year-old male with a history of IBS presenting today with left- sided abdominal pain as well as an episode of unresponsiveness . ?He inadvertently hit his left flank on a doorknob at around 5 PM which did cause his fairly significant amount of pain. ?He then smoked some marijuana and had a couple of edibles, which is normal for him. ?At around 945 or 10 PM the patient was feeling sick which was then described as nausea after he was pushing on his left flank. ?He then walked upstairs and things became hazy . ?He then went and sat on a chair. ?He apparently lost consciousness for 10 seconds. ?When he awoke he reports that he this was witnessed by his stepmother (not present) as well as a couple of his stepmother's friends. ?He was then brought to the hospital. ?No current nausea. ?He did not vomit. ?No diaphoresis. ?No chest pain or shortness of breath. ?No history of DVT, PE, unilateral leg swelling, recent travel immobilization, exogenous hormone use. ?He denies any hemoptysis. ?There is no family history of early cardiac . ?He denies any palpitations. ?This has never happened to him before. 01/16/24, [facility] Work-up: EKG: Sinus rhythm at 81 bpm, normal axis, normal intervals, no ST segment changes.. ? CT Abdomen/pelvis: 1. ?Very mild subcutaneous soft tissue contusion in the left lower quadrant. 2. ?Moderate gastric distention may represent gastroparesis. ?No evidence of small bowel obstruction. 3. ?Mild bladder wall thickening may be related to underdistention or cystitis.. ? Labs- CBC/CMP- WNL. Mag 2.4 H. Ethanol- negative. Lactate- n/a, Tox screen- n/a. 03/05/2024, [facility] [place], MR/MR head/brain wo/w con IMPRESSION: 1. No evidence of intracranial hemorrhage, acute infarction, mass effect, edema, or abnormal contrast enhancement. 2. No seizure foci identified. No white matter signal abnormalities identified, the hippocampi appear normal, and no cortical dysplasia or evidence of heterotopic sorto matter. 3. No abnormal patterns of atrophy. PMH and ROS are also notable for:? General: hearing loss. fatigue, confusion, sexual difficulty, headaches Musculoskeletal disorders or injury: some neck and back pain History of concussion/head injury: has had a few concussions w/ LOC w/o prolonged s/s- last in February 2023. Mood d/o: Anxiety, Depression Respiratory d/o: Asthma CV disease: states he was feeling an abnormal heart beat for a while, now occurs occasionally. EKG was normal, was asymptomatic during EKG. GI d/o: had C-diff in 2020 secondary to ABT tx for epididymitis- since he has had IBS s/s. Sleep difficulties: Endorses: night sweats, difficulty initiating and maintaining sleep, Sleepiness when inactive, Fatigue, Restless sleep Caffeine use: 2 cups of green tea per day. Used to take energy drinks. Substance use: Starting smoking cigarettes in highschool- trying to quit- taking few puffs every few days, Marijuana- a few bong inhalations before and after work, Alcohol- socially- a beer or two. Pertinent denials include: Vision changes, diplopia, dizziness, CV disease, Clotting or hematology d/o, Endocrine d/o, metabolic d/o, Headache questionnaire:? Typical headache characteristics: Prodrome symptoms: unsure Aura: none Pain intensity: moderate- 6-7/10 Location, quality, characteristics: Throbbing pain behind his left eye and wraps around the whole head. Associated symptoms: photophobia, fatigue, cognitive difficulties, activity intolerance. Postdrome: lingers Triggers: poor fluid intake, hunger Time of day: Typically in the am or at night. Duration and Frequency: Once every 1-2 weeks lasting a couple of hours How does headache impact your life? sometimes needs to sleep it off. not needing to miss work Current acute medication use/interventions: Ibuprofen 200-400mg helps. Current preventative medication use: none Non-pharmacological interventions: Sleeping x's 2 hrs helps. [facility] Medical History Hemorrhoids Depression Eczema Imbalance Memory loss Seizures IBS (irritable bowel syndrome) Asthma Anxiety Surgical History No pertinent past surgical history Family History Mother Alcoholism Paternal Grandmother Cardiovascular disease Maternal Grandmother Alcoholism Other Substance use Social History Housing: House Alcohol intake: former Patient Tobacco Use Status: Former Tobacco user Cigarette Packs Per Day: 0.5 Years Smoked: 1 e-Cigarette/Vaping Use: Former Use Second Hand Smoke Exposure: Yes (past and present) Substance Use Type: Marijuana service: Yes 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 Cervical ROM: full Left Spurling: normal Right Spurling: elicits left neck discomfort. General: patient oriented x3 and deep tendon reflexes 2+ bilaterally Cranial nerves: Yes CN's II-XII intact bilaterally Cognition (Neuro): normal cognition Gait exam (Neuro): Normal gait present Motor exam (neuro): 5/5 motor strength present throughout Psych Appearance: grossly normal Mental Status: mental status grossly normal Speech and movement: Normal speech and movement present Affect: normal affect Attitude: cooperative Assessment & Plan Assessment & Plan (1) Headache: Comment: probable migraine without aura Code(s): R51.9 - Headache, unspecified Category: Medical Qualifiers: Headache type: unspecified Headache chronicity pattern: episodic headache Intractability: not intractable Qualified Code(s): R51.9 - Headache, unspecified (2) Seizure-like activity: Code(s): R56.9 - Unspecified convulsions Category: Medical (3) Convulsive syncope: Code(s): R55 - Syncope and collapse Category: Medical (4) Neck pain: Code(s): M54.2 - Cervicalgia Category: Medical (5) Left shoulder pain: Code(s): M25.512 - Pain in left shoulder Category: Medical Plan For isolated episode of convulsive syncope in setting of h/o spacing out episodes of unknown etiology: Brain MRI- unremarkable MRI. Previous [facility] ER notes- unfortunately- tox screen and lactate levels were not obtained. Reviewed Oct 2024 Baseline EEG- unremarkable Reviewed Oct 2024 72 Hr Holter- WNL, NSR. Pt has not had another convulsive syncopal episode in > 6 months, however reviewed that if he has another episode or feels as if he would have another episode, he should NOT drive or engage in high risk activities x's at least 6 months. For new onset left neck pain s/p mechanical fall- C-spine and t-spine XR at [place] [facility]- no fracture. Trial Magnesium 400mg qhs Trial Gabapentin 100-300mg qhs- for muscle spasm, pain, and may help headaches as well. PT eval & tx- order slip given to pt w/ list of PT locations in [place]. For acute headache treatment: May continue Ibuprofen 400-600mg q 4-6hrs prn. Previous acute headache medication trials: none Acute migraine medication contraindications: none at this time Will follow-up upon review of above and patient to follow-up in clinic in 6 months or sooner prn. Orders: Orders PT Evaluation and Treatment Today M25.512 - Pain in left shoulder, M54.2 - Cervicalgia Medications: New magnesium oxide may hold for loose stools 400 mg PO BEDTIME 30 days 30 tabs 6RF gabapentin 100 - 300 mg (1 - 3 x 100 mg) PO BEDTIME 30 days 90 caps 3RF Coding Level of Care Code Est Pt Level 4 (72717) Diagnoses Nonintractable episodic headache, unspecified headache type R51.9 Headache type: unspecified Headache chronicity pattern: episodic headache Intractability: not intractable Seizure-like activity R56.9 Convulsive syncope R55 Neck pain M54.2 Left shoulder pain M25.512
--- OUTSIDE RECORDS SUMMARY | 2025-02-08 09:10 | XMS_ITS | Clinical Summary ---
Author Organization [facility] Address [address] [place] [address] Phone Care Team Providers Care Farm Crew Leader Name Role Phone Unavailable Primary Care Provider [...] few week ago and followed up with [facility] for support. Pt reports significant social anxiety, feeling anxious before social events and then ruminating over things he said/ did not say and how people perceive him. Assessment & Plan (02/14/2023 2:03 PM EDT): Pt agreed to follow-up with [facility] for an initial consult, but indicated that [...] 15 Meningococcal Vaccine Completed 03/22/2020, 013 Insurance [facility] NON PCC [facility] ACO [facility] NON PCC
--- OUTSIDE RECORDS SUMMARY | 2025-02-08 09:10 | XMS_ITS | Encounter Summary ---
Author Organization [facility] Address [address] [place] [address] Phone Care Team Providers Care Director Of Sales Support Name Role Phone Claudia Basilio MD Primary Care Provider [phone] Encounter Details Date Type Department Care Team (Late st Contact Info) Description 05/23/2017 Conversion Encounter [facility] [address] [place] [address] Social History Tobacco Use Types Packs/Day Years [...] on filedocumented in this encounter Care Teams Director Of Sales Support Relationship Specialty Start Date End Date Claudia Basilio MD [address] [place] [id number] PCP - General 05/17/17 05/13/23 documented as of this encounter
--- OUTSIDE RECORDS SUMMARY | 2025-02-08 09:10 | XMS_ITS | Clinical Summary ---
Author Organization [employer] Address [address] [place] [address] [address] [place] [address] Care Team Providers Care Production Cook Name Role Phone Unavailable Primary Care Provider [...] Most Recently Relevant to Health Maintenance Insurance [facility] MEDICAID STAND ADULT
--- OUTSIDE RECORDS SUMMARY | 2025-02-08 09:10 | XMS_ITS | Encounter Summary ---
Author Organization [facility] Address [address] [place] [address] Phone Care Team Providers Care Instructor Bridge Name Role Phone Claudia Basilio MD Primary Care Provider [phone] Encounter Details Date Type Department Care Team (Late st Contact Info) Description 05/18/2014 Documentation [facility] Family Medicine [address] [place], [place] [id number] Family Medicine, Physician [address] [place] [address] Social History Tobacco Use Types Packs/Day Years [...] on filedocumented in this encounter Care Teams Instructor Bridge Relationship Specialty Start Date End Date Claudia Basilio MD [address] [place] [address] [place] [address] PCP - General 05/17/17 05/13/23 documented as of this encounter
== END 2025-02-08 09:36 | disposition home or self-care (01) ==
LOC: HO.HSMS 08:47
PROVIDERS: PCP Internal Medicine; Visit Provider Nurse Practitioner Family
DX: R51.9 Headache, unspecified (principal); R56.9 Unspecified convulsions; R55 Syncope and collapse; M54.2 Cervicalgia; M25.512 Pain in left shoulder
CPT/HCPCS: 99214

== ENCOUNTER → 2025-02-08 08:46 | Outpatient (BNVA) | payer OTHER, SELFPAY | PROVIDERS: PCP Internal Medicine; Visit Provider Nurse Practitioner Family | DX: R51.9 Headache, unspecified (principal); R56.9 Unspecified convulsions; R55 Syncope and collapse; M54.2 Cervicalgia; M25.512 Pain in left shoulder | CPT/HCPCS: 99212 ==

== ENCOUNTER 2025-05-03 15:47 | Outpatient (AMB) | payer OTHER, SELFPAY ==
--- NOTE | 2025-05-03 15:49 | A.OFFPC_ITS ---
Vital Signs 05/03/25 15:52 Height 5 ft 10 in Weight 154 lb 8 oz BMI 22.2 BP 116/64 Blood Pressure Location Rt brachial Position Sitting Respiration 12 Pulse 61 Pulse Source Pulse Oximeter Pulse Oximetry (%) 97 Oxygen Delivery Method Room Air Intake Visit Reasons: with pcp Intake Note: Follow up. Fell down a flight of stairs in January and has been doing physical therapy. Burning Plant Operator Required: No Allergies No Known Allergies (No Known Allergies*) Allergy (Verified 05/03/25 15:51) Tobacco use date assessed: 05/03/25 Dental Screening Dental Screen Date: 05/03/25 Did you have a dental visit in the last 12 months?: Yes Did you have a dental problem in the last 6 months where you did not have access to dental care?: No Was dental information given to patient?: Patient has dentist HPI HPI Comments History of Present Illness Details 24 year old male with a past medical his tory of syncope, IBS, hemorrhoids, depression, anxiety presenting for follow up Patient has intermittent rectal discomfort, episodic bright red blood spotting on tissue paper. He has IBS is prone to frequent loose stools. Sometimes he feels swelling in the rectal area-he saw general surgery but was unable to tolerate anoscopy. He was recently seen in the ER. Bleeding has since resolved and declines gen surgery, CR referral Since having C diff in 2021 patient has had ongoing abdominal discomfort, cramping. Has at least 3 BM per day. Mostly formed. Some brbpr intermittently due to hemorrhoids. Tried probiotic with little effect. For the past week has been having urinary hesitancy Neuro:Following with neurology. History of syncope, possible seizure. Patient denies Presented to [facility] ER on January 14 with left sided abdominal pain and a reported episode of unresponsiveness. Hit his left flank on a doorknob ~5 pm causing significant pain. Between 5 and 10pm patient smoked some marijuana and ingested a few edibles which was not outside his norm. Between 945 and 10pm patient started to feel sick , nauseous. He elicited pain when pressing on the left flank He walked upstairs and says things became hazy. Sat down on a chair where he reports losing consciousness for ~10 seconds. Work up, stepmom and stepmoms friends were there and brought him to hospital. No prior similar episode. in ER EKG normal. No significant electrolyte abnormalities. . CT abd largely unremarkable Patient denies any interval episodes. Reports that he was talking with someone when he lost consciousness. They noticed nystagmus of the eyes. Deny witness of any muscle twitching, shaking, tongue biting, incontinence. Patient does endorse history of concussions none within last 6 months. Reports a few headaches a month for years. Reports decreasing visual acuity over years. Denies significant post ictal pse Patient reports increased fatigue, lack of motivation for the past few months. No fevers, rash, LN. No overt depression. Work is stressful. 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 ROS see HPI PHYSICAL EXAM: GENERAL: Alert and oriented x 3. NAD EYES: EOMI. Anicteric. HENT: Moist mucous membranes. No scleral icterus. No cervical lymphadenopathy. LUNGS: Clear to auscultation bilaterally. CARDIOVASCULAR: Regular rate and rhythm. No murmur. No JVD. ABDOMEN: Soft, non-tender +bs : Normal penis. No palpable testicular masses EXTREMITIES: No edema. Non-tender. SKIN: No rashes or lesions. Warm. NEUROLOGIC: No focal neurological deficits. CN II-XII grossly intact PSYCHIATRIC: Cooperative. Appropriate mood and affect [facility] Medical History Hemorrhoids Depression Eczema Imbalance Memory loss Seizures IBS (irritable bowel syndrome) Asthma Anxiety Surgical History No pertinent past surgical history Family History Mother Alcoholism Paternal Grandmother Cardiovascular disease Maternal Grandmother Alcoholism Other Substance use Social History Housing: House Alcohol intake: former Patient Tobacco Use Status: Former Tobacco user Cigarette Packs Per Day: 0.5 Years Smoked: 1 e-Cigarette/Vaping Use: Currently Using Second Hand Smoke Exposure: Yes (past and present) Substance Use Type: Marijuana service: Yes Current occupational status: employed 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 1. Little interest or pleasure in doing things: several days 2. Feeling down, depressed, or hopeless: several days 3. Trouble falling or staying asleep, or sleeping too much: nearly every day 4. Feeling tired or having little energy: nearly every day 5. Poor appetite or overeating: several days 6. Feeling bad about yourself - or that you are a failure or have let yourself or your family down: several days 7. Trouble concentrating on things, such as reading the newspaper or watching television: more than half the days 8. Moving or speaking so slowly that other people could have noticed. Or the opposite - being so fidgety or restless that you have been moving around a lot more than usual: not at all 9. Thoughts that you would be better off or of hurting yourself in some way: not at all Total score: 12 Depression Screening Interpretation: Positive (labs ordered. discussed possible pharmacologic therapy if labs etc normal) Depression Screening Follow-up: Other Depression Screening Done: Yes 25859 - PHQ-9 Billing: Yes Source: Developed by Drs. Rigo Hernández, Anali Gibbs, Bryon Garcia and colleagues, with an educational queta from [email or web address]. Thrive Questionnaire Date Thrive assessed: 08/02/24 I am a: Patient What is your living situation today?: I have a steady place to live Within the past 12 months, did the food you bought not last and you didn't have the money to get more?: Never true Within the past 12 months, did you worry whether your food would run out before you got money to buy more?: Never true Do you have trouble paying for medicines?: No Do you have trouble getting transportation to medical appointments?: No Do you have trouble paying your heating and electricity bill?: No Do you have trouble taking care of your child, family member or friend?: No Do you have trouble with day-to-day activities such as bathing, preparing meals, shopping, managing finances, etc.?: Yes Are you currently unemployed and looking for a job?: No Are you interested in more education?: Yes Please select the resources that you would like help with: None Currently or been in a relationship where the following occur: No concerns reported THRIVE Score: 0 AUDIT C Alcohol Use Questionnaire (AUDIT-C) 1. How often do you have a drink containing alcohol?: 2-4 times a month 2. How many drinks containing alcohol do you have on a typical day when you are drinking?: 3 or 4 3. How often do you have six or more drinks on one occasion?: Less than monthly Total Score: 4 RD-[address] - 7 assessed: 02/05/24 Feeling nervous, anxious, or on edge: 1 = Several days Not being able to stop or control worryin = More than half the days Worrying too much about different things: 2 = More than half the days Trouble relaxin = More than half the days Being so restless that it is hard to sit still: 2 = More than half the days Becoming easily annoyed or irritable: 1 = Several days Feeling afraid as if something awful might happen: 1 = Several days Total RD-7 score (0-4 normal; 5-9 mild; 10-14 moderate; 15-21 severe): 11 Source: Developed by Drs. Rigo Hernández, Anali Gibbs, Bryon Garcia and colleagues, with an educational queta from [email or web address]. Physical exam (Primary Care) Vital Signs: Last Vital Signs Pulse 61 05/03/25 15:52 Resp 12 05/03/25 15:52 BP 116/64 05/03/25 15:52 Pulse Ox 97 05/03/25 15:52 Oxygen Delivery Method Room Air 05/03/25 15:52 BMI result Body Mass Index 22.2 Tobacco/Smoking Status: Tobacco use Status Tobacco use date assessed 05/03/25 05/03/25 15:55 Patient Tobacco Use Status Former Tobacco user 05/03/25 15:55 e-Cigarette/Vaping Use Currently Using 05/03/25 15:55 PHQ-9: PHQ-9 Score PHQ-9: Total score 12 05/03/25 16:01 Depression Screening Interpretation: Positive (labs ordered. discussed possible pharmacologic therapy if labs etc normal) Depression Screening Follow-up: Other Thrive Assessment: Date of Thrive Assessment Date Thrive assessed 08/02/24 05/03/25 15:55 Currently or been in a relationship where the following occur: No concerns reported Coding Level of Care Code Est Pt Level 4 (39549) Diagnoses Fatigue, unspecified type R53.83 Fatigue type: unspecified Loss of consciousness R40.20 Depression, unspecified depression type F32.A Depression Type: unspecified Additional Codes PHQ-9 - 77220 - PHQ-9 Billing: Yes ([id number]) Assessment & Plan Assessment & Plan (1) Fatigue: Code(s): R53.83 - Other fatigue Category: Medical Qualifiers: Fatigue type: unspecified Qualified Code(s): R53.83 - Other fatigue (2) Loss of consciousness: Comment: Discussed possible drug induced LOC but with nystagmus and headaches would like to r/o seizures. Orders sent Code(s): R40.20 - Unspecified coma Category: Medical (3) Depression: Code(s): F32.A - Depression, unspecified Category: Medical Qualifiers: Depression Type: unspecified Qualified Code(s): F32.A - Depression, unspecified Plan 24 year old male presenting for follow up Fatigue-check labs. Discussed possible 2/2 depression. Would consider wellbutrin. Could consider sleep testing. History of syncope. continue neurology follow up Orders: Orders Lyme IgG/IgM w/reflex to WB Today R53.83 - Other fatigue Cortisol Random Today R53.83 - Other fatigue Vitamin B12 and Folate Today R53.83 - Other fatigue Testosterone, Free/Total Today R53.83 - Other fatigue IRON PROFILE Today R53.83 - Other fatigue
[2025-05-03 15:52] VITALS: BP 116/64; PULSE 61; RESP 12; O2SAT 97; BMI 22.2
--- OUTSIDE RECORDS SUMMARY | 2025-05-03 16:00 | XMS_ITS | Encounter Summary ---
Author Organization [facility] Address [address] [place] [address] Phone Care Team Providers Care Backwinder Name Role Phone Claudia Basilio MD Primary Care Provider [phone] Encounter Details Date Type Department Care Team (Late st Contact Info) Description 05/23/2017 Conversion Encounter [facility] [place] [address] [place] [address] Social History Tobacco Use Types Packs/Day Years [...] on filedocumented in this encounter Care Teams Backwinder Relationship Specialty Start Date End Date Claudia Basilio MD [address] [place] [id number] PCP - General 05/17/17 05/13/23 documented as of this encounter
--- OUTSIDE RECORDS SUMMARY | 2025-05-03 16:00 | XMS_ITS | Clinical Summary ---
Author Organization [email or web address] Address [address] [place] [address] [address] [place] [address] Care Team Providers Care Managing Director Atlas Name Role Phone Unavailable Primary Care Provider [...] 2002 HIV Screening 2002 SDOH Screening 2002 Disability Screening 2002 Alcohol/Substance Use Screening 2014 Tobacco Screening 2014 Family Planning (PISQ) 2017 HPV Vaccines (1 - Male 3-dos e series) 2017 Meningococcal B Vaccine (1 o f 2 - Standard) 2018 Hepatitis C Screening 2020 DTaP/Tdap/Td Vaccines (1 - Tdap) 2021 Hepatitis B Vaccines (1 of 3 - 19+ 3-dose series) 2021 Pneumococcal Vaccine: Pediat rics (0 to 5 Years) and At-Risk Patients (6 to 49) Years (1 of 2 - PCV) 2021 COVID-19 Vaccine ( - 2023-2 5 season) 2024 Influenza Vaccine (#1) 2025 Dental X-Ray: Full Mouth 11/12/2026 11/11/2023 Zoster [...] Most Recently Relevant to Health Maintenance Insurance DENTAL-[facility] MEDICAID STAND ADULT
== END 2025-05-03 16:18 | disposition home or self-care (01) ==
LOC: HO.HMCFM 15:47
PROVIDERS: PCP Internal Medicine; Visit Provider Internal Medicine
DX: R53.83 Other fatigue (principal); R40.20 Unspecified coma; F32.A Depression, unspecified

== ENCOUNTER → 2025-05-03 15:47 | Outpatient (BNVA) | payer OTHER, SELFPAY | PROVIDERS: PCP Internal Medicine; Visit Provider Internal Medicine | DX: R55 Syncope and collapse (principal); R53.83 Other fatigue; F32.A Depression, unspecified; Z13.31 Encounter for screening for depression | CPT/HCPCS: 96127; 99212 ==

== ENCOUNTER 2025-05-05 09:16 | Outpatient (REF) | payer OTHER, SELFPAY ==
--- OUTSIDE RECORDS SUMMARY | 2025-05-05 09:46 | XMS_ITS | Clinical Summary ---
Author Organization [employer] Address [address] [place] [address] [address] [place] [address] Care Team Providers Care Business Supervisor Name Role Phone Unavailable Primary Care Provider [...] Most Recently Relevant to Health Maintenance Insurance [facility]AL-[facility] MEDICAID STAND ADULT
--- OUTSIDE RECORDS SUMMARY | 2025-05-05 09:46 | XMS_ITS | Encounter Summary ---
Author Organization [facility] Address [address] [place] [address] Phone Care Team Providers Care Oncology Physician Assistant Name Role Phone Claudia Basilio MD Primary Care Provider [phone] Encounter Details Date Type Department Care Team (Late st Contact Info) Description 05/23/2017 Conversion Encounter [facility] [place] [address] [place] [address] Social History Tobacco Use Types Packs/Day Years [...] on filedocumented in this encounter Care Teams Oncology Physician Assistant Relationship Specialty Start Date End Date Claudia Basilio MD [address] [place] [id number] PCP - General 05/17/17 05/13/23 documented as of this encounter
[2025-05-05 11:51] LABS: Iron 102 mcg/dL (45-160); Percent Iron Saturation 42 % (15-50); Total Iron Binding Capacity 241 mcg/dL (228-428); Unsaturated Iron Binding 139 ug/dL
[2025-05-05 14:19] LABS: Folate 9.5 ng/mL (> or = 4.0); Vitamin B12 420 pg/mL (200-900)
[2025-05-06 09:48] LABS: Lyme Abs Screen <0.90 index
[2025-05-10 21:23] LABS: Testosterone, Free 105.2 pg/mL (35.0-155.0)
== END 2025-05-05 09:17 | disposition home or self-care (01) ==
LOC: HO.WFDLDS 09:16
PROVIDERS: Visit Provider Internal Medicine
DX: Z00.00 Encounter for general adult medical examination without abnormal findings (principal); R33.9 Retention of urine, unspecified; R53.83 Other fatigue; R19.8 Other specified symptoms and signs involving the digestive system and abdomen; R19.4 Change in bowel habit
CPT/HCPCS: 36415; 82533; 82607; 82746; 83540; 84402; 84403; 86617; 86618